=== PATIENT | female | born 1965 | race Caucasian/White ===

== ENCOUNTER 2018-09-28 09:16 | Emergency (ER) | payer OTHER ==
[~2018-09-28] VITALS: Ht 167.6 cm; Wt 86.4 kg
[~2018-09-28 09:16] MED LIST: HYDR-4353 PO; MULT-1179 PO; NO HOME MEDS; ONDA4TAB12 PO; ONDA4TAB6 PO
[2018-09-28 09:20] VITALS: BP 132/80
[2018-09-28] MEDS ORDERED: ondansetron 4mg rapidly disintigrating tab PO ONE (09:25)
[2018-09-28] MEDS ORDERED: LORazepam 1 MG tablet PO PRN (09:25)
[2018-09-28] MEDS ORDERED: ONDA4TAB6 PO (09:29)
[2018-09-28] MEDS ORDERED: proCHLORperazine 10mg tablet PO ONE (10:10)
== END 2018-09-28 10:34 | disposition home or self-care (01) ==
LOC: ER 09:17
DX: F10.229 Alcohol dependence with intoxication, unspecified (principal); R11.0 Nausea; E86.0 Dehydration; I48.91 Unspecified atrial fibrillation; Z86.19 Personal history of other infectious and parasitic diseases; Z90.710 Acquired absence of both cervix and uterus; Z98.890 Other specified postprocedural states; Z79.899 Other long term (current) drug therapy; Z60.2 Problems related to living alone; Z56.0 Unemployment, unspecified; Z59.0 Homelessness; Y90.9 Presence of alcohol in blood, level not specified
CPT/HCPCS: 99284; Q0164

== ENCOUNTER 2018-12-30 00:37 | Emergency (ER) | payer OTHER ==
[~2018-12-30] VITALS: Ht 167.6 cm; Wt 81.8 kg
[2018-12-30] MEDS ORDERED: pantoprazole 40 MG vial IV ONE (00:50)
[2018-12-30] MEDS ORDERED: ondansetron/PF 4mg/2ml inj IV ONE (00:50)
[2018-12-30] MEDS ORDERED: ESOMEPRAZOLE 40 MG VIAL IV ONE (00:50)
[2018-12-30] MEDS ORDERED: normal saline 1000ml 1,000 ML IV ONE ×2 (00:50→02:20)
[2018-12-30] MEDS ORDERED: metoclopramide 5 mg/ml inj IV ONE (02:20)
[2018-12-30] MEDS ORDERED: famotidine 20mg tablet PO ONE (02:20)
[2018-12-30] MEDS ORDERED: thiamine 100mg/ml 2ml inj. IV ONE (02:20)
[2018-12-30] MEDS ORDERED: PANT-47 PO (03:05)
[2018-12-30] MEDS ORDERED: ONDA8TAB6 PO (03:05)
--- NOTE | 2018-12-30 03:44 | NUR ---
PT PO CHALLENGED WITH APPLESAUCE AND CRACKERS, PT PASSED PO CHALLENGE WITHOUT VOMITING.
[2018-12-30 03:56] VITALS: BP 153/89
== END 2018-12-30 04:06 | disposition home or self-care (01) ==
LOC: ER 00:38
DX: K29.20 Alcoholic gastritis without bleeding (principal); I48.91 Unspecified atrial fibrillation; Z86.19 Personal history of other infectious and parasitic diseases; Z87.01 Personal history of pneumonia (recurrent); Z90.710 Acquired absence of both cervix and uterus; Z98.890 Other specified postprocedural states; Z59.0 Homelessness; Z56.0 Unemployment, unspecified; Z79.899 Other long term (current) drug therapy
CPT/HCPCS: 93005; 96361; 96374; 96375; 99283; J2405; J2765; J3411; J7030

== ENCOUNTER 2019-03-03 13:53 | Emergency (ER) | payer MEDICAID, OTHER ==
[~2019-03-03] VITALS: Ht 167.6 cm; Wt 86.4 kg
[~2019-03-03 13:53] MED LIST changes: +ONDA8TAB6 PO; +PANT-47 PO
[2019-03-03 15:01] LABS: BASOPHILS % (AUTO) 0.5 % (0-1); EOSINOPHILS % (AUTO) 0.4 % (0-6); HEMATOCRIT 50.9 % (35.0-45.0); HEMOGLOBIN 17.4 g/dl (12.0-16.0); LYMPHOCYTES # (AUTO) 2.9 X10'3 (1.1-4.8); LYMPHOCYTES % (AUTO) 44.4 % (21-51); MEAN CORPUSCULAR HEMOGLOBIN 31.8 PG (27.0-31.0); MEAN CORPUSCULAR HGB CONC 34.3 g/dL (33.0-36.5); MEAN CORPUSCULAR VOLUME 92.9 FL (78-98); MEAN PLATELET VOLUME 8.1 FL (7.4-10.4); MONOCYTES # (AUTO) 0.3 X10'3 (0-0.9); MONOCYTES % (AUTO) 5.2 % (2-12); NEUTROPHILS # (AUTO) 3.2 X10'3 (1.8-7.7); NEUTROPHILS % (AUTO) 49.5 % (42-75); PLATELET COUNT 201 X10'3 (140-440); RED BLOOD COUNT 5.48 X10'6 (4.20-5.60); RED CELL DISTRIBUTION WIDTH 13.1 % (11.5-14.5); WHITE BLOOD COUNT 6.6 X10'3 (4.5-11.0)
--- NOTE | 2019-03-03 15:20 | NUR ---
PT REQUESTED TO CONTACT FAMILY FRIEND, USHA. HIS PHONE NUMBER IS [phone].
[2019-03-03 15:22] LABS: ALANINE AMINOTRANSFERASE 57 U/L (12-78); ALBUMIN 3.4 G/DL (3.4-5.0); ALBUMIN/GLOBULIN RATIO 0.9 (1.1-1.5); ALKALINE PHOSPHATASE 109 IU/L (46-116); ANION GAP 7 (8-16); ASPARTATE AMINO TRANSFERASE 76 U/L (10-37); BILIRUBIN,TOTAL 0.2 MG/DL (0.1-1.0); BLOOD UREA NITROGEN 9 MG/DL (7-18); BUN/CREATININE RATIO 14.8 (6.6-38.0); CALCIUM 8.2 MG/DL (8.5-10.1); CHLORIDE 106 MMOL/L (99-107); CREATININE 0.61 MG/DL (0.40-0.90); GLUCOSE 107 MG/DL (70-104); POTASSIUM 3.8 MMOL/L (3.5-5.1); SODIUM 144 MMOL/L (135-145); TOTAL CARBON DIOXIDE 31.5 MMOL/L (24-32); TOTAL PROTEIN 7.3 G/DL (6.4-8.2); eGFR > 90 ML/MIN
[2019-03-03 15:35] LABS: ETHANOL 0.313 GM/DL (0.0-0.010)
[2019-03-03 17:04] LABS: CLARITY,URINE CLEAR (Clear); COLOR,URINE YELLOW (Yellow); GLUCOSE, URINE NEGATIVE (Neg); KETONES,URINE NEGATIVE (Neg); LEUKOCYTE ESTERASE ,URINE NEGATIVE (Neg); NITRITES, URINE NEGATIVE (Neg); OCCULT BLOOD,URINE NEGATIVE (Neg); PH,URINE 7.5 (4.8-8.0); PROTEIN,URINE NEGATIVE (Neg)
[2019-03-03 17:05] LABS: UA COLLECTION TYPE CLN CATCH MIDSTREAM
[2019-03-03 17:20] LABS: URINE AMPHETAMINE SCREEN NEGATIVE (Neg); URINE BARBITUATE SCREEN NEGATIVE (Neg); URINE BENZODIAZEPINES SCREEN NEGATIVE (Neg); URINE CANNABINOID SCREEN NEGATIVE (Neg); URINE COCAINE SCREEN NEGATIVE (Neg); URINE METHADONE SCREEN NEGATIVE (Neg); URINE OPIATE SCREEN NEGATIVE (Neg); URINE PHENCYCLIDINE SCREEN NEGATIVE (Neg)
[2019-03-03] MEDS ORDERED: nicotine 21mg patch - 24 hr TD ONE (17:30)
--- NOTE | 2019-03-03 17:30 | NUR ---
PT MEDICAL CLEARED. PACKET FAXED TO [facility] OFF[facility].
[2019-03-03] MEDS ORDERED: ondansetron 4mg rapidly disintigrating tab PO ONE (18:35)
[2019-03-04] MEDS ORDERED: chlordiazePOXIDE 25mg capsule PO ONE (02:25)
[2019-03-04] MEDS ORDERED: folic acid 1mg tablet PO ONE (02:25)
[2019-03-04] MEDS ORDERED: thiamine 100mg tablet PO ONE (02:25)
--- NOTE | 2019-03-04 02:36 | NUR ---
Discussed pt's ETOH withdrawal symptoms with AVI Phan. New order to begin pt on Mild Alcohol Withdrawal protocol: Ativan 2mg PO Q2h for agitation x3 days, Haldol 5mg Po or IM Q6h for agitation x3 days. If Ativan alone not effective, give Haldol IM only PO rout not available or ineffective. form faxed to Pharmacy.
[2019-03-04] MEDS ORDERED: LORazepam 1 MG tablet PO PRN ×2 (02:45)
[2019-03-04] MEDS ORDERED: LORazepam 2 mg/ml vial IV PRN (02:45)
[2019-03-04] MEDS ORDERED: haloperidol 5mg tablet PO PRN ×2 (02:45)
[2019-03-04] MEDS ORDERED: haloperidol lactate 5mg/ml inj IM PRN (02:45)
[2019-03-04] MEDS ORDERED: thiamine 100mg/ml 2ml inj. IV ONE (02:50)
--- NOTE | 2019-03-04 03:03 | NUR ---
Pt willingly accepted all po meds. She is refusing IV thiamine @ this time saying, "If I don't start feeling better I'll let you put one in me, but it will have to be in my neck. First I want to see if these meds will stay down and work." Will continue to monitor pt and keep EDMD appraised.
--- NOTE | 2019-03-04 03:11 | NUR ---
Pt is denying S/I @ this time saying, "I drank 99 proof for 4 or 5 days and said I wanted to kill myself. I was just really stupid and lonely. And my stress level was high as my [facility] client of 5 years just basically 'fired' me. It was the way he did it that was so upsetting. I introduced him to a friend of mine and he took off with her." Pt denies H/I or audio/visual hallucinations @ this time. Pt exhibits s/s of etoh withdrawal including irritability, restlessness, anxiety, light/sound sensitivity, fine and coarse hand tremors. She attempts to be cooperative, but mood is very labile currently.
--- NOTE | 2019-03-04 03:17 | NUR ---
seizure pads placed
[2019-03-04 05:30] VITALS: BP 148/101
--- NOTE | 2019-03-04 07:20 | NUR ---
patient appears to be asleep.
--- NOTE | 2019-03-04 07:40 | NUR ---
Patients medications given, patient is steady and has minimal shaking of the hands. Patient states "Im feeling better." Educated patient to request Ativan if she is feeling anxious and startes to have increased shaking. Patient acknowledges education and states "I'm not drinking again".
[2019-03-04] MEDS ORDERED: nicotine 21mg patch - 24 hr TD SCH (08:00)
--- NOTE | 2019-03-04 08:55 | NUR ---
[facility] in to eval patient.
== END 2019-03-04 11:01 | disposition home or self-care (01) ==
LOC: ER 13:54
DX: R45.851 Suicidal ideations (principal); F10.129 Alcohol abuse with intoxication, unspecified; I48.91 Unspecified atrial fibrillation; Z86.19 Personal history of other infectious and parasitic diseases; Z90.710 Acquired absence of both cervix and uterus; Z98.890 Other specified postprocedural states; Z60.2 Problems related to living alone; Z59.0 Homelessness; Z56.0 Unemployment, unspecified; Y90.0 Blood alcohol level of less than 20 mg/100 ml
CPT/HCPCS: 36415; 80053; 80305; 80320; 81003; 84443; 85025; 99284; J2405

== ENCOUNTER 2019-09-17 01:55 | Emergency (ER) | payer MEDICAID ==
[~2019-09-17] VITALS: Ht 167.6 cm; Wt 70.5 kg
[~2019-09-17 01:55] MED LIST changes: -HYDR-4353 PO; -MULT-1179 PO; -ONDA4TAB12 PO; -ONDA4TAB6 PO; -ONDA8TAB6 PO; -PANT-47 PO
[2019-09-17] MEDS ORDERED: diphenhydrAMINE 50 mg/ml inj IV ONE (02:00)
[2019-09-17] MEDS ORDERED: metoclopramide 5 mg/ml inj IV ONE (02:00)
[2019-09-17] MEDS ORDERED: normal saline 1000ML IV soln IVB ONE ×3 (02:00→04:35)
[2019-09-17] MEDS ORDERED: LORazepam 2 mg/ml vial IV ONE (02:10)
[2019-09-17] MEDS ORDERED: glycopyrrolate 0.2mg/ml inj IV ONE (02:10)
[2019-09-17 02:42] LABS: BASOPHILS % (AUTO) 0.3 % (0-1); EOSINOPHILS # (AUTO) 0.1 X10'3 (0-0.9); EOSINOPHILS % (AUTO) 0.5 % (0-6); HEMATOCRIT 51.5 % (35.0-45.0); HEMOGLOBIN 17.5 g/dl (12.0-16.0); LYMPHOCYTES # (AUTO) 3.3 X10'3 (1.1-4.8); LYMPHOCYTES % (AUTO) 32.6 % (21-51); MEAN CORPUSCULAR HEMOGLOBIN 30.1 PG (27.0-31.0); MEAN CORPUSCULAR HGB CONC 33.9 g/dL (33.0-36.5); MEAN CORPUSCULAR VOLUME 88.6 FL (78-98); MEAN PLATELET VOLUME 9.1 FL (7.4-10.4); MONOCYTES # (AUTO) 0.6 X10'3 (0-0.9); MONOCYTES % (AUTO) 6.1 % (2-12); NEUTROPHILS # (AUTO) 6.2 X10'3 (1.8-7.7); NEUTROPHILS % (AUTO) 60.5 % (42-75); PLATELET COUNT 244 X10'3 (140-440); RED BLOOD COUNT 5.82 X10'6 (4.20-5.60); RED CELL DISTRIBUTION WIDTH 15.7 % (11.5-14.5); WHITE BLOOD COUNT 10.3 X10'3 (4.5-11.0)
[2019-09-17 02:52] LABS: ALANINE AMINOTRANSFERASE 30 U/L (12-78); ALKALINE PHOSPHATASE 107 IU/L (46-116); ANION GAP 9 (8-16); ASPARTATE AMINO TRANSFERASE 21 U/L (10-37); BILIRUBIN,TOTAL 0.5 MG/DL (0.1-1.0); BLOOD UREA NITROGEN 14 MG/DL (7-18); BUN/CREATININE RATIO 14.3 (6.6-38.0); CALCIUM 9.6 MG/DL (8.5-10.1); CHLORIDE 97 MMOL/L (99-107); CREATININE 0.98 MG/DL (0.40-0.90); GLUCOSE 110 MG/DL (70-104); LIPASE 149 U/L (73-393); POTASSIUM 3.7 MMOL/L (3.5-5.1); SODIUM 133 MMOL/L (135-145); TOTAL CARBON DIOXIDE 27.4 MMOL/L (24-32); TOTAL PROTEIN 7.9 G/DL (6.4-8.2); eGFR 59 ML/MIN
[2019-09-17 03:13] LABS: CLARITY,URINE SLIGHTLY CLOUDY (Clear); COLOR,URINE YELLOW (Yellow); GLUCOSE, URINE NEGATIVE (Neg); KETONES,URINE NEGATIVE (Neg); LEUKOCYTE ESTERASE ,URINE NEGATIVE (Neg); NITRITES, URINE NEGATIVE (Neg); OCCULT BLOOD,URINE TRACE-INTACT (Neg); PROTEIN,URINE TRACE mg/dl (Neg); UROBILINOGEN,URINE 0.2 E.U/dL (0.2-1.0)
[2019-09-17 03:21] LABS: UA COLLECTION TYPE CLN CATCH MIDSTREAM
[2019-09-17 03:23] LABS: MUCUS STRANDS MANY /LPF (Neg); SQUAMOUS EPITHELIAL CELL,UR MANY /LPF (FEW)
[2019-09-17 03:25] LABS: BACTERIA,URINE FEW /HPF (Neg); RBC,URINE 0-2 /HPF (0-2); WBC,URINE 0-4 /HPF (0-4)
[2019-09-17] MEDS ORDERED: ONDA4TAB12 PO (04:47)
[2019-09-17 05:46] VITALS: BP 173/109
[2019-09-18] MEDS ORDERED: PROC25SU31 RC (01:18)
== END 2019-09-17 05:47 | disposition home or self-care (01) ==
LOC: ER 01:55
DX: R11.2 Nausea with vomiting, unspecified (principal); R10.84 Generalized abdominal pain; R42 Dizziness and giddiness; I48.91 Unspecified atrial fibrillation; F12.90 Cannabis use, unspecified, uncomplicated; Z86.19 Personal history of other infectious and parasitic diseases; Z90.710 Acquired absence of both cervix and uterus; Z98.890 Other specified postprocedural states; Z72.89 Other problems related to lifestyle; Z60.2 Problems related to living alone; Z59.0 Homelessness; Z56.0 Unemployment, unspecified; Z79.899 Other long term (current) drug therapy
CPT/HCPCS: 36415; 80053; 81001; 83690; 85025; 96361; 96374; 96375; 99284; J1200; J2060; J2765; J7030; J3490

== ENCOUNTER 2019-09-17 21:59 | Emergency (ER) | payer MEDICAID ==
[~2019-09-17] VITALS: Ht 167.6 cm; Wt 68.2 kg
[~2019-09-17 21:59] MED LIST changes: +ONDA4TAB12 PO
[2019-09-17 22:03] VITALS: BP 179/120
--- NOTE | 2019-09-17 22:16 | NUR ---
PATIENT WAS VISUALIZED STICKING HER HAND DOWN HER THROAT TO INITIATE VOMITING
[2019-09-17] MEDS ORDERED: magnesium 2GM in 50ml NS 50 ML IV ONE (22:40)
[2019-09-17] MEDS ORDERED: LORazepam 2 mg/ml vial IV ONE (22:40)
[2019-09-17] MEDS ORDERED: normal saline 1000ML IV soln IVB ONE ×2 (22:40)
[2019-09-17] MEDS ORDERED: diphenhydrAMINE 50 mg/ml inj IV ONE (22:40)
[2019-09-17] MEDS ORDERED: haloperidol lactate 5mg/ml inj IM ONE (22:40)
[2019-09-17 23:00] LABS: EOSINOPHILS # (AUTO) 0.1 X10'3 (0-0.9); HEMOGLOBIN 17.4 g/dl (12.0-16.0); MONOCYTES # (AUTO) 0.6 X10'3 (0-0.9)
[2019-09-17 23:01] LABS: BASOPHILS % (AUTO) 0.4 % (0-1); EOSINOPHILS % (AUTO) 0.5 % (0-6); HEMATOCRIT 50.9 % (35.0-45.0); LYMPHOCYTES # (AUTO) 3.1 X10'3 (1.1-4.8); MEAN CORPUSCULAR HEMOGLOBIN 30.6 PG (27.0-31.0); MEAN CORPUSCULAR HGB CONC 34.1 g/dL (33.0-36.5); MEAN CORPUSCULAR VOLUME 89.5 FL (78-98); MEAN PLATELET VOLUME 9.1 FL (7.4-10.4); MONOCYTES % (AUTO) 5.1 % (2-12); NEUTROPHILS # (AUTO) 8.1 X10'3 (1.8-7.7); PLATELET COUNT 241 X10'3 (140-440); RED BLOOD COUNT 5.68 X10'6 (4.20-5.60); RED CELL DISTRIBUTION WIDTH 15.8 % (11.5-14.5); WHITE BLOOD COUNT 11.9 X10'3 (4.5-11.0)
[2019-09-17 23:12] LABS: H PYLORI ANTIBODY NEGATIVE (Neg)
[2019-09-17 23:13] LABS: ALANINE AMINOTRANSFERASE 28 U/L (12-78); ALBUMIN 3.8 G/DL (3.4-5.0); ALKALINE PHOSPHATASE 104 IU/L (46-116); ANION GAP 9 (8-16); ASPARTATE AMINO TRANSFERASE 22 U/L (10-37); BILIRUBIN,TOTAL 0.6 MG/DL (0.1-1.0); BLOOD UREA NITROGEN 9 MG/DL (7-18); BUN/CREATININE RATIO 11.1 (6.6-38.0); CALCIUM 9.6 MG/DL (8.5-10.1); CHLORIDE 100 MMOL/L (99-107); CREATININE 0.81 MG/DL (0.40-0.90); GLUCOSE 120 MG/DL (70-104); POTASSIUM 3.7 MMOL/L (3.5-5.1); SODIUM 135 MMOL/L (135-145); TOTAL CARBON DIOXIDE 26.5 MMOL/L (24-32); TOTAL PROTEIN 7.7 G/DL (6.4-8.2); eGFR 73 ML/MIN
[2019-09-17 23:22] LABS: LIPASE 145 U/L (73-393)
[2019-09-18] MEDS ORDERED: normal saline 1000ML IV soln IVB ONE (00:20)
[2019-09-18] MEDS ORDERED: ondansetron/PF 4mg/2ml inj IV ONE (00:40)
[2019-09-18] MEDS ORDERED: PROC25SU31 RC (01:18)
[2019-09-19] MEDS ORDERED: SUCR1TAB34 PO (04:27)
[2019-09-19] MEDS ORDERED: OMEP20CA15 PO (04:27)
[2019-09-19] MEDS ORDERED: FAMO20TA44 PO (04:27)
[2019-09-19] MEDS ORDERED: ONDA4TAB6 PO (04:27)
== END 2019-09-18 01:45 | disposition home or self-care (01) ==
LOC: ER 21:59
DX: R11.2 Nausea with vomiting, unspecified (principal); R10.84 Generalized abdominal pain; I48.91 Unspecified atrial fibrillation; F12.90 Cannabis use, unspecified, uncomplicated; Z86.19 Personal history of other infectious and parasitic diseases; Z90.710 Acquired absence of both cervix and uterus; Z98.890 Other specified postprocedural states; Z60.2 Problems related to living alone; Z59.0 Homelessness; Z56.0 Unemployment, unspecified; Z79.899 Other long term (current) drug therapy
CPT/HCPCS: 36415; 80053; 83605; 83690; 84439; 84443; 85025; 86677; 96361; 96365; 96366; 96372; 96375; 99284; J1200; J1630; J2060; J2405; J3475; J7030

== ENCOUNTER 2019-09-19 01:15 | Emergency (ER) | payer MEDICAID ==
[~2019-09-19] VITALS: Ht 167.6 cm; Wt 68.0 kg
[~2019-09-19 01:15] MED LIST changes: +PROC25SU31 RC
[2019-09-19] MEDS ORDERED: pantoprazole 40 MG vial IV ONE (01:35)
[2019-09-19] MEDS ORDERED: ondansetron/PF 4mg/2ml inj IV ONE ×2 (01:35→04:45)
[2019-09-19] MEDS ORDERED: normal saline 1000ML IV soln IVB ONE (01:35)
[2019-09-19] MEDS ORDERED: famotidine/PF 10 mg/ml inj IV ONE (01:35)
[2019-09-19 02:40] LABS: ALANINE AMINOTRANSFERASE 30 U/L (12-78); ALBUMIN 4.1 G/DL (3.4-5.0); ALBUMIN/GLOBULIN RATIO 1.1 (1.1-1.5); ALKALINE PHOSPHATASE 104 IU/L (46-116); ANION GAP 8 (8-16); ASPARTATE AMINO TRANSFERASE 28 U/L (10-37); BILIRUBIN,TOTAL 0.7 MG/DL (0.1-1.0); BLOOD UREA NITROGEN 10 MG/DL (7-18); BUN/CREATININE RATIO 11.5 (6.6-38.0); CALCIUM 9.6 MG/DL (8.5-10.1); CHLORIDE 100 MMOL/L (99-107); CREATININE 0.87 MG/DL (0.40-0.90); GLUCOSE 138 MG/DL (70-104); LIPASE 122 U/L (73-393); POTASSIUM 3.5 MMOL/L (3.5-5.1); SODIUM 136 MMOL/L (135-145); TOTAL CARBON DIOXIDE 27.8 MMOL/L (24-32); eGFR 67 ML/MIN
[2019-09-19] MEDS ORDERED: haloperidol lactate 5mg/ml inj IM ONE (03:05)
[2019-09-19 03:22] LABS: BASOPHILS % (AUTO) 0.3 % (0-1); EOSINOPHILS % (AUTO) 0.1 % (0-6); HEMATOCRIT 48.1 % (35.0-45.0); HEMOGLOBIN 16.3 g/dl (12.0-16.0); LYMPHOCYTES # (AUTO) 2.1 X10'3 (1.1-4.8); LYMPHOCYTES % (AUTO) 17.6 % (21-51); MEAN CORPUSCULAR HEMOGLOBIN 29.9 PG (27.0-31.0); MEAN CORPUSCULAR HGB CONC 33.8 g/dL (33.0-36.5); MEAN CORPUSCULAR VOLUME 88.3 FL (78-98); MEAN PLATELET VOLUME 9.3 FL (7.4-10.4); MONOCYTES # (AUTO) 0.5 X10'3 (0-0.9); MONOCYTES % (AUTO) 4.4 % (2-12); NEUTROPHILS # (AUTO) 9.4 X10'3 (1.8-7.7); NEUTROPHILS % (AUTO) 77.6 % (42-75); PLATELET COUNT 265 X10'3 (140-440); RED BLOOD COUNT 5.45 X10'6 (4.20-5.60); RED CELL DISTRIBUTION WIDTH 15.5 % (11.5-14.5); WHITE BLOOD COUNT 12.1 X10'3 (4.5-11.0)
[2019-09-19] MEDS ORDERED: LIDOcaine Viscous 15ml cup MM PRN (03:30)
[2019-09-19] MEDS ORDERED: mag hydrox/Alum hydrox/simeth 30ml oral suspension PO ONE (03:30)
[2019-09-19] MEDS ORDERED: sucralfate 1gm/10ml UD suspension PO SCH (03:30)
[2019-09-19] MEDS ORDERED: SUCR1TAB34 PO (04:27)
[2019-09-19] MEDS ORDERED: ONDA4TAB6 PO (04:27)
[2019-09-19] MEDS ORDERED: FAMO20TA44 PO (04:27)
[2019-09-19] MEDS ORDERED: OMEP20CA15 PO (04:27)
[2019-09-19 04:58] VITALS: BP 179/100
== END 2019-09-19 05:30 | disposition home or self-care (01) ==
LOC: ER 01:16
DX: K29.70 Gastritis, unspecified, without bleeding (principal); I48.91 Unspecified atrial fibrillation; F12.90 Cannabis use, unspecified, uncomplicated; Z86.19 Personal history of other infectious and parasitic diseases; Z90.710 Acquired absence of both cervix and uterus; Z98.890 Other specified postprocedural states; Z59.0 Homelessness; Z56.0 Unemployment, unspecified; Z60.2 Problems related to living alone; Z72.89 Other problems related to lifestyle; Z79.899 Other long term (current) drug therapy
CPT/HCPCS: 36415; 80053; 83605; 83690; 85025; 96361; 96372; 96374; 96375; 96376; 99284; C9113; J1630; J2405; J3490; J7030

== ENCOUNTER 2020-02-16 18:20 | Inpatient (IN) | payer MEDICAID ==
[~2020-02-16] VITALS: Ht 167.6 cm; Wt 62.7 kg
[~2020-02-16 18:20] MED LIST changes: +FAMO20TA44 PO; +OMEP20CA15 PO; +ONDA4TAB6 PO; -PROC25SU31 RC; +SUCR1TAB34 PO
--- NOTE | 2020-02-16 19:13 | NUR ---
[facility] SPEAKING WITH PT
[2020-02-16 19:22] LABS: CLARITY,URINE CLEAR (Clear); COLOR,URINE YELLOW (Yellow); GLUCOSE, URINE NEGATIVE (Neg); KETONES,URINE NEGATIVE (Neg); LEUKOCYTE ESTERASE ,URINE NEGATIVE (Neg); NITRITES, URINE NEGATIVE (Neg); OCCULT BLOOD,URINE TRACE-INTACT (Neg); PROTEIN,URINE TRACE mg/dl (Neg)
[2020-02-16 19:27] LABS: BASOPHILS % (AUTO) 0.3 % (0-1); EOSINOPHILS % (AUTO) 0 % (0-6); HEMATOCRIT 43.1 % (35.0-45.0); HEMOGLOBIN 14.7 g/dl (12.0-16.0); LYMPHOCYTES # (AUTO) 2.9 X10'3 (1.1-4.8); LYMPHOCYTES % (AUTO) 18.7 % (21-51); MEAN CORPUSCULAR HEMOGLOBIN 32.8 PG (27.0-31.0); MEAN CORPUSCULAR HGB CONC 34.1 g/dL (33.0-36.5); MEAN CORPUSCULAR VOLUME 96.1 FL (78-98); MEAN PLATELET VOLUME 8.4 FL (7.4-10.4); MONOCYTES # (AUTO) 1.1 X10'3 (0-0.9); NEUTROPHILS # (AUTO) 11.3 X10'3 (1.8-7.7); PLATELET COUNT 290 X10'3 (140-440); RED BLOOD COUNT 4.49 X10'6 (4.20-5.60); WHITE BLOOD COUNT 15.3 X10'3 (4.5-11.0)
[2020-02-16 19:28] LABS: UA COLLECTION TYPE CLN CATCH MIDSTREAM
[2020-02-16 19:29] LABS: BACTERIA,URINE FEW /HPF (Neg); MUCUS STRANDS FEW /LPF (Neg); RBC,URINE 0-2 /HPF (0-2); SQUAMOUS EPITHELIAL CELL,UR FEW /LPF (FEW); WBC,URINE 0-4 /HPF (0-4)
[2020-02-16 19:42] LABS: ALANINE AMINOTRANSFERASE 23 U/L (12-78); ALBUMIN 3.4 G/DL (3.4-5.0); ALBUMIN/GLOBULIN RATIO 0.8 (1.1-1.5); ALKALINE PHOSPHATASE 115 IU/L (46-116); ANION GAP 14 (8-16); ASPARTATE AMINO TRANSFERASE 16 U/L (10-37); BILIRUBIN,TOTAL 0.5 MG/DL (0.1-1.0); BLOOD UREA NITROGEN 7 MG/DL (7-18); BUN/CREATININE RATIO 9.7 (6.6-38.0); CALCIUM 8.3 MG/DL (8.5-10.1); CHLORIDE 100 MMOL/L (99-107); CREATININE 0.72 MG/DL (0.40-0.90); GLUCOSE 130 MG/DL (70-104); POTASSIUM 3.2 MMOL/L (3.5-5.1); SODIUM 137 MMOL/L (135-145); TOTAL CARBON DIOXIDE 23.3 MMOL/L (24-32); TOTAL PROTEIN 7.8 G/DL (6.4-8.2); eGFR 84 ML/MIN
--- NOTE | 2020-02-16 19:52 | NUR ---
UPDATED EXTENSION PROFESSOR ABOUT PT NOT BEING PICKED UP BY AN MD YET.
--- NOTE | 2020-02-16 20:15 | NUR ---
UPDATED WILIAM AL REGARDING PT'S CONDITION AND LAB RESULTS. RN UPDATED THAT PT IS SEPTIC; WILL ORDER MORPHINE 4MG, 2L BOLUS AND BLOOD CULTURES TO BE DRAWN.
[2020-02-16] MEDS ORDERED: normal saline 1000ml 1,000 ML IV STA (20:17)
--- NOTE | 2020-02-16 20:19 | NUR ---
VERBAL ORDER FOR MORPHINE 4MG, 2L BOLUS AND BLOOD CULTURES TO BE DRAWN.
[2020-02-16] MEDS ORDERED: normal saline 1000ml 1,000 ML IV ONE (20:20)
[2020-02-16] MEDS ORDERED: morphine 4 MG/ML inj SYRINge IV ONE (20:20)
--- NOTE | 2020-02-16 20:53 | NUR ---
SPOKE WITH LAB- THEY INFORMED RN THAT THEY DID NOT HAVE ANY BLOOD CULTURES. SPOKE WITH PROMPT CARE RNSANTINO REED- SHE INFORMED RN THAT FIRST CULTURES HAVE BEEN DRAWN.
[2020-02-16] MEDS ORDERED: temazepam 15mg capsule PO PRN (21:00)
[2020-02-16] MEDS ORDERED: vancomycin/NS 1 GM ADD-VANTAGE 250 ML IV ONE (21:15)
[2020-02-16] MEDS ORDERED: potassium Cl 20 mEq SR tablet PO ONE (21:25)
[2020-02-16] MEDS ORDERED: CITA20TA19 PO (22:07)
--- NOTE | 2020-02-16 22:12 | NUR ---
UPDATED WILIAM AL ABOUT PT'S LOWER O2 READINGS. PT IS NOT STATING SHE IS HAVING ANY SOB AT THIS TIME. NO VERBAL ORDER FOR O2. WILL CONTINUE TO MONITOR.
--- NOTE | 2020-02-16 22:20 | NUR ---
PT ASLEEP AND O2 DROPPED TO 83-84%- WILIAM PA AWARE AND VERBAL ORDER FOR 2L O2 VIA NC. 2025: O2 NOW AT 90%- WILL CONTINUE TO MONITOR.
[2020-02-16] MEDS: normal saline 1000ml 1,000 ML IV SCH (22:24)
[2020-02-16] MEDS ORDERED: magnesium 2GM in 50ml NS 50 ML IV PRN (22:25)
[2020-02-16] MEDS ORDERED: ondansetron/PF 4mg/2ml inj IV PRN (22:25)
[2020-02-16] MEDS ORDERED: morphine 2 MG/ML inj. syringe IV PRN (22:25)
[2020-02-16] MEDS ORDERED: magnesium Cl slow-release 64mg tablet PO PRN (22:25)
[2020-02-16] MEDS ORDERED: acetaminophen 325mg tablet PO PRN ×2 (22:25)
[2020-02-16] MEDS ORDERED: potassium CL 10mEq/100ml bag 100 ML IV PRN ×2 (22:25)
[2020-02-16] MEDS ORDERED: magnesium 4gm in 100ml NS 100 ML IV PRN (22:25)
[2020-02-16] MEDS ORDERED: HYDROcodone/acetaminophen 5mg/325mg tablet PO PRN (22:25)
[2020-02-16] MEDS ORDERED: potassium Cl 20 mEq SR tablet PO PRN (22:25)
[2020-02-16] MEDS ORDERED: mag hydrox/Alum hydrox/simeth 30ml oral suspension PO PRN (22:25)
[2020-02-16] MEDS ORDERED: albuterol 2.5 MG/3 ML nebule NEB PRN (22:30)
--- NOTE | 2020-02-16 23:15 | NUR ---
PT O2 STILL LOW (90-91%) ON 2L; INCREASED TO 3L NC- O2 INCREASED TO 96%. WILL CONTINUE TO MONITOR.
[2020-02-16] MEDS ORDERED: LORazepam 1 MG tablet PO PRN (23:50)
[2020-02-16] MEDS ORDERED: LORazepam 2 mg/ml vial IV PRN (23:50)
--- NOTE | 2020-02-17 00:03 | NUR ---
SPOKE WITH SHANDAU REGARDING SEIZURE PRECAUTION ORDERS. PT INFORMED MD THAT SHE INCREASED HER ALCOHOL CONSUMPTION RECENTLY (SHE DID NOT TELL THIS TO RN); SEIZURE PRECAUTIONS ORDERED AND WITHDRAWAL MONITORING.
[2020-02-17] MEDS: morphine 2 MG/ML inj. syringe IV PRN ×4 (01:01→19:14)
--- NOTE | 2020-02-17 02:10 | NUR ---
PT TRANSFERRED TO HOSPITAL BED FOR COMFORT. GIVEN 2 APPLE JUICE CUPS AND WARM BLANKET UPON REQUEST. PT STATES NO OTHER NEEDS AT THIS TIME.
[2020-02-17] MEDS: HYDROcodone/acetaminophen 10/325mg tab PO PRN ×2 (03:05→10:09)
[2020-02-17 07:28] LABS: ALBUMIN 3.1 G/DL (3.4-5.0); ANION GAP 7 (8-16); BLOOD UREA NITROGEN 6 MG/DL (7-18); BUN/CREATININE RATIO 9.8 (6.6-38.0); CALCIUM 7.7 MG/DL (8.5-10.1); CHLORIDE 101 MMOL/L (99-107); CREATININE 0.61 MG/DL (0.40-0.90); GLUCOSE 97 MG/DL (70-104); MAGNESIUM 1.6 MG/DL (1.5-2.4); POTASSIUM 4.1 MMOL/L (3.5-5.1); SODIUM 135 MMOL/L (135-145); TOTAL CARBON DIOXIDE 26.6 MMOL/L (24-32); eGFR > 90 ML/MIN
[2020-02-17 07:32] LABS: BASOPHILS % (AUTO) 0.3 % (0-1); EOSINOPHILS % (AUTO) 0.1 % (0-6); HEMATOCRIT 42.1 % (35.0-45.0); LYMPHOCYTES # (AUTO) 2.8 X10'3 (1.1-4.8); LYMPHOCYTES % (AUTO) 17.1 % (21-51); MEAN CORPUSCULAR HEMOGLOBIN 32.1 PG (27.0-31.0); MEAN CORPUSCULAR HGB CONC 33.3 g/dL (33.0-36.5); MEAN CORPUSCULAR VOLUME 96.5 FL (78-98); MEAN PLATELET VOLUME 8.4 FL (7.4-10.4); MONOCYTES # (AUTO) 1.2 X10'3 (0-0.9); MONOCYTES % (AUTO) 7.2 % (2-12); NEUTROPHILS # (AUTO) 12.5 X10'3 (1.8-7.7); NEUTROPHILS % (AUTO) 75.3 % (42-75); PLATELET COUNT 274 X10'3 (140-440); RED BLOOD COUNT 4.37 X10'6 (4.20-5.60); RED CELL DISTRIBUTION WIDTH 13.2 % (11.5-14.5); WHITE BLOOD COUNT 16.6 X10'3 (4.5-11.0)
[2020-02-17] MEDS: K and/or MAG REPLACEMENT MC SCH ×2 (08:00→19:17)
[2020-02-17] MEDS: normal saline 1000ml 1,000 ML IV SCH ×2 (08:24→18:24)
[2020-02-17] MEDS: docusate sod 100mg capsule PO SCH ×2 (10:04→19:10)
[2020-02-17] MEDS: citalopram 20mg tablet PO SCH (10:04)
[2020-02-17] MEDS: nicotine 14mg patch - 24hr TD SCH (10:05)
[2020-02-17] MEDS: heparin, porcine 5000 units/ml vial SQ SCH ×2 (10:11→19:09)
[2020-02-17] MEDS: doxycycline inj 100 MG in normal saline 100ml IV soln 100 ML IV SCH ×2 (10:17→21:02)
[2020-02-17 11:00] VITALS: BP 132/80
[2020-02-17] MEDS ORDERED: dextrose 50%-water 50ml dispensing syringe IV PRN (15:35)
[2020-02-17] MEDS ORDERED: haloperidol 5mg tablet PO PRN (15:35)
[2020-02-17] MEDS ORDERED: LORazepam 1 MG tablet PO PRN (15:35)
[2020-02-17] MEDS ORDERED: haloperidol lactate 5mg/ml inj IM PRN (15:35)
[2020-02-17] MEDS: piperacillin/tazo 3.375gm/50ml 50 ML IV SCH (16:43)
[2020-02-17] MEDS: LORazepam 2 mg/ml vial IV PRN ×2 (16:52→22:32)
--- NOTE | 2020-02-17 18:14 | NUR ---
Problems reprioritized. Patient report given, questions answered & plan of care reviewed with Maria Guadalupe CORREA.
--- NOTE | 2020-02-17 18:38 | NUR ---
Patient in room ROBERT 346. I have received report from Dana CORREA and had the opportunity to ask questions and assume patient care.
[2020-02-17] MEDS: vancomycin/NS 1 GM ADD-VANTAGE 250 ML IV SCH (19:03)
[2020-02-17] MEDS: lactobacillus rhamnosus 10,000 MMU CELLS/CAPSULE PO SCH (19:10)
[2020-02-17 20:16] VITALS: BP 120/77
[2020-02-18] VITALS: BP 122/66
[2020-02-18] MEDS: piperacillin/tazo 3.375gm/50ml 50 ML IV SCH ×4 (00:39→21:52)
[2020-02-18] MEDS: morphine 2 MG/ML inj. syringe IV PRN ×5 (01:07→21:52)
[2020-02-18] MEDS: normal saline 1000ml 1,000 ML IV SCH ×3 (03:24→21:49)
[2020-02-18] MEDS: vancomycin/NS 1 GM ADD-VANTAGE 250 ML IV SCH ×2 (04:35→17:33)
[2020-02-18] MEDS: LORazepam 2 mg/ml vial IV PRN ×3 (04:36→19:32)
[2020-02-18 05:17] LABS: BASOPHILS % (AUTO) 0.2 % (0-1); EOSINOPHILS % (AUTO) 0.3 % (0-6); HEMATOCRIT 36.7 % (35.0-45.0); HEMOGLOBIN 12.3 g/dl (12.0-16.0); LYMPHOCYTES # (AUTO) 2.5 X10'3 (1.1-4.8); LYMPHOCYTES % (AUTO) 15.1 % (21-51); MEAN CORPUSCULAR HEMOGLOBIN 32.2 PG (27.0-31.0); MEAN CORPUSCULAR HGB CONC 33.6 g/dL (33.0-36.5); MEAN PLATELET VOLUME 8.7 FL (7.4-10.4); MONOCYTES # (AUTO) 0.8 X10'3 (0-0.9); MONOCYTES % (AUTO) 4.7 % (2-12); NEUTROPHILS % (AUTO) 79.7 % (42-75); PLATELET COUNT 281 X10'3 (140-440); RED BLOOD COUNT 3.83 X10'6 (4.20-5.60); RED CELL DISTRIBUTION WIDTH 12.7 % (11.5-14.5); WHITE BLOOD COUNT 16.3 X10'3 (4.5-11.0)
[2020-02-18 05:31] LABS: ALBUMIN 2.2 G/DL (3.4-5.0); ANION GAP 6 (8-16); CALCIUM 7.7 MG/DL (8.5-10.1); CHLORIDE 99 MMOL/L (99-107); CREATININE 0.55 MG/DL (0.40-0.90); GLUCOSE 90 MG/DL (70-104); MAGNESIUM 1.5 MG/DL (1.5-2.4); POTASSIUM 3.4 MMOL/L (3.5-5.1); SODIUM 132 MMOL/L (135-145); TOTAL CARBON DIOXIDE 26.6 MMOL/L (24-32); eGFR > 90 ML/MIN
[2020-02-18 05:44] LABS: BLOOD UREA NITROGEN 4 MG/DL (7-18); BUN/CREATININE RATIO 7.3 (6.6-38.0)
--- NOTE | 2020-02-18 06:18 | NUR ---
Problems reprioritized. Patient report given, questions answered & plan of care reviewed with Padmini CORREA.
[2020-02-18 07:00] VITALS: BP 116/80
--- NOTE | 2020-02-18 07:02 | NUR ---
Patient in room ROBERT 346. I have received report from bernie CORREA and had the opportunity to ask questions and assume patient care.
[2020-02-18] MEDS: K and/or MAG REPLACEMENT MC SCH ×2 (08:00→19:33)
[2020-02-18] MEDS: thiamine 100mg tablet PO SCH (08:07)
[2020-02-18] MEDS: lactobacillus rhamnosus 10,000 MMU CELLS/CAPSULE PO SCH ×2 (08:07→19:32)
[2020-02-18] MEDS: docusate sod 100mg capsule PO SCH ×2 (08:07→19:32)
[2020-02-18] MEDS: citalopram 20mg tablet PO SCH (08:07)
[2020-02-18] MEDS: multivitamins, therapeutics tablet PO SCH (08:07)
[2020-02-18] MEDS: folic acid 1mg tablet PO SCH (08:07)
[2020-02-18] MEDS: nicotine 14mg patch - 24hr TD SCH (08:09)
[2020-02-18] MEDS: heparin, porcine 5000 units/ml vial SQ SCH ×2 (08:09→19:32)
[2020-02-18] MEDS: HYDROcodone/acetaminophen 10/325mg tab PO PRN ×2 (08:10→14:51)
[2020-02-18] MEDS: doxycycline inj 100 MG in normal saline 100ml IV soln 100 ML IV SCH ×2 (09:40→19:33)
[2020-02-18] MEDS: potassium Cl 20 mEq SR tablet PO PRN ×2 (09:43→17:34)
[2020-02-18 11:00] VITALS: BP 133/77
[2020-02-18] MEDS ORDERED: iohexol 300mg/ml 100ml inj. ONE (16:27)
--- NOTE | 2020-02-18 17:48 | NUR ---
patient seen by dr nieto. wound observed to be draining mod amount of purrelent DC. Lab reported that patient has MRSA in wound culture. Dr Nieto aware. Shakey at times, medicated with Ativan per ETOH protocol. Observed to have reddened area with whitish head on right elbow. Dr Nieto paged. Continues with IV ABX, pleasant and cooperative.
--- NOTE | 2020-02-18 18:20 | NUR ---
Problems reprioritized. Patient report given, questions answered & plan of care reviewed with Hanna CORREA.
--- NOTE | 2020-02-18 18:24 | NUR ---
RECEIVED REPORT FROM KRYSTAL CORREA AND ASSUMED PATIENT CARE
[2020-02-18 20:00] VITALS: BP 103/68
[2020-02-19] VITALS: BP 124/75
[2020-02-19] MEDS: LORazepam 2 mg/ml vial IV PRN ×3 (00:08→19:16)
[2020-02-19] MEDS ORDERED: VANCOMYCIN LEVEL IV ONE (04:30)
[2020-02-19] MEDS: vancomycin/NS 1 GM ADD-VANTAGE 250 ML IV SCH (04:56)
[2020-02-19] MEDS: morphine 2 MG/ML inj. syringe IV PRN ×3 (05:00→22:00)
[2020-02-19 05:43] LABS: BASOPHILS % (AUTO) 0.4 % (0-1); EOSINOPHILS # (AUTO) 0.2 X10'3 (0-0.9); EOSINOPHILS % (AUTO) 1.4 % (0-6); HEMATOCRIT 36.2 % (35.0-45.0); HEMOGLOBIN 12.2 g/dl (12.0-16.0); LYMPHOCYTES # (AUTO) 1.6 X10'3 (1.1-4.8); LYMPHOCYTES % (AUTO) 14.8 % (21-51); MEAN CORPUSCULAR HEMOGLOBIN 32.5 PG (27.0-31.0); MEAN CORPUSCULAR HGB CONC 33.7 g/dL (33.0-36.5); MEAN CORPUSCULAR VOLUME 96.3 FL (78-98); MEAN PLATELET VOLUME 8.7 FL (7.4-10.4); MONOCYTES # (AUTO) 0.5 X10'3 (0-0.9); MONOCYTES % (AUTO) 4.3 % (2-12); NEUTROPHILS # (AUTO) 8.8 X10'3 (1.8-7.7); NEUTROPHILS % (AUTO) 79.1 % (42-75); PLATELET COUNT 274 X10'3 (140-440); RED BLOOD COUNT 3.75 X10'6 (4.20-5.60); RED CELL DISTRIBUTION WIDTH 12.8 % (11.5-14.5); WHITE BLOOD COUNT 11.1 X10'3 (4.5-11.0)
[2020-02-19] MEDS: piperacillin/tazo 3.375gm/50ml 50 ML IV SCH ×3 (05:46→22:00)
[2020-02-19 05:49] LABS: ALBUMIN 2.1 G/DL (3.4-5.0); ANION GAP 3 (8-16); BLOOD UREA NITROGEN 4 MG/DL (7-18); BUN/CREATININE RATIO 7.1 (6.6-38.0); CALCIUM 8.2 MG/DL (8.5-10.1); CHLORIDE 102 MMOL/L (99-107); CREATININE 0.56 MG/DL (0.40-0.90); GLUCOSE 90 MG/DL (70-104); MAGNESIUM 1.6 MG/DL (1.5-2.4); POTASSIUM 3.9 MMOL/L (3.5-5.1); SODIUM 134 MMOL/L (135-145); TOTAL CARBON DIOXIDE 28.6 MMOL/L (24-32); VANCOMYCIN,TROUGH 5.5 UG/ML (6.0-14.0); eGFR > 90 ML/MIN
--- NOTE | 2020-02-19 06:25 | NUR ---
Patient in room ROBERT 346. I have received report from Hanna CORREA O/N flojasmine and had the opportunity to ask questions and assume patient care.
[2020-02-19 07:00] VITALS: BP 136/76
[2020-02-19] MEDS: docusate sod 100mg capsule PO SCH ×2 (07:17→19:16)
[2020-02-19] MEDS: thiamine 100mg tablet PO SCH (07:17)
[2020-02-19] MEDS: lactobacillus rhamnosus 10,000 MMU CELLS/CAPSULE PO SCH ×2 (07:17→19:16)
[2020-02-19] MEDS: folic acid 1mg tablet PO SCH (07:17)
[2020-02-19] MEDS: nicotine 14mg patch - 24hr TD SCH (07:17)
[2020-02-19] MEDS: citalopram 20mg tablet PO SCH (07:18)
[2020-02-19] MEDS: multivitamins, therapeutics tablet PO SCH (07:18)
[2020-02-19] MEDS: heparin, porcine 5000 units/ml vial SQ SCH ×2 (07:18→19:17)
[2020-02-19] MEDS: HYDROcodone/acetaminophen 10/325mg tab PO PRN ×2 (07:28→13:01)
--- NOTE | 2020-02-19 08:29 | NUR ---
Patient refused accu check. Patient is eating well.
[2020-02-19] MEDS: K and/or MAG REPLACEMENT MC SCH ×2 (08:35→19:32)
[2020-02-19] MEDS: doxycycline inj 100 MG in normal saline 100ml IV soln 100 ML IV SCH ×2 (09:43→19:15)
[2020-02-19] MEDS: normal saline 1000ml 1,000 ML IV SCH ×2 (10:24→15:12)
--- NOTE | 2020-02-19 12:00 | NUR ---
Patient refused vs
[2020-02-19] MEDS: VANCOmycin 1250MG/NS 250ml Bag 250 ML IV SCH ×2 (12:55→22:00)
--- NOTE | 2020-02-19 14:17 | NUR ---
Patient refused accu check
--- NOTE | 2020-02-19 18:10 | NUR ---
Problems reprioritized. Patient report given, questions answered & plan of care reviewed with Maria Guadalupe CORREA
--- NOTE | 2020-02-19 18:55 | NUR ---
Patient in room ROBERT 346. I have received report from Yisel CORREA and had the opportunity to ask questions and assume patient care.
[2020-02-19 20:00] VITALS: BP 145/68
[2020-02-20 00:13] VITALS: BP 138/89
[2020-02-20] MEDS: LORazepam 2 mg/ml vial IV PRN ×4 (00:57→22:52)
--- NOTE | 2020-02-20 02:19 | NUR ---
Pt refused accucheck.
[2020-02-20] MEDS: morphine 2 MG/ML inj. syringe IV PRN ×4 (04:00→20:21)
[2020-02-20] MEDS: normal saline 1000ml 1,000 ML IV SCH ×3 (04:07→20:15)
[2020-02-20] MEDS: VANCOmycin 1250MG/NS 250ml Bag 250 ML IV SCH ×3 (05:44→20:20)
[2020-02-20 05:50] LABS: BASOPHILS % (AUTO) 0.4 % (0-1); EOSINOPHILS # (AUTO) 0.2 X10'3 (0-0.9); EOSINOPHILS % (AUTO) 2.6 % (0-6); HEMOGLOBIN 12.9 g/dl (12.0-16.0); LYMPHOCYTES # (AUTO) 1.7 X10'3 (1.1-4.8); LYMPHOCYTES % (AUTO) 23.1 % (21-51); MEAN CORPUSCULAR HEMOGLOBIN 32.8 PG (27.0-31.0); MEAN CORPUSCULAR HGB CONC 33.9 g/dL (33.0-36.5); MEAN CORPUSCULAR VOLUME 96.8 FL (78-98); MEAN PLATELET VOLUME 8.5 FL (7.4-10.4); MONOCYTES # (AUTO) 0.4 X10'3 (0-0.9); MONOCYTES % (AUTO) 6.2 % (2-12); NEUTROPHILS # (AUTO) 4.9 X10'3 (1.8-7.7); NEUTROPHILS % (AUTO) 67.7 % (42-75); PLATELET COUNT 321 X10'3 (140-440); RED BLOOD COUNT 3.93 X10'6 (4.20-5.60); RED CELL DISTRIBUTION WIDTH 12.8 % (11.5-14.5); WHITE BLOOD COUNT 7.2 X10'3 (4.5-11.0)
[2020-02-20 06:05] LABS: ALBUMIN 2.5 G/DL (3.4-5.0); ANION GAP 6 (8-16); BLOOD UREA NITROGEN 4 MG/DL (7-18); CHLORIDE 101 MMOL/L (99-107); CREATININE 0.57 MG/DL (0.40-0.90); GLUCOSE 91 MG/DL (70-104); MAGNESIUM 1.5 MG/DL (1.5-2.4); POTASSIUM 3.7 MMOL/L (3.5-5.1); SODIUM 135 MMOL/L (135-145); TOTAL CARBON DIOXIDE 28.5 MMOL/L (24-32); eGFR > 90 ML/MIN
[2020-02-20 06:06] LABS: PARTIAL THROMBOPLASTIN TIME 28 SECONDS (22-32)
--- NOTE | 2020-02-20 06:21 | NUR ---
Problems reprioritized. Patient report given, questions answered & plan of care reviewed with Tony CORREA.
--- NOTE | 2020-02-20 06:26 | NUR ---
Patient in room ROBERT 346. I have received report from SUNNY KLEIN and had the opportunity to ask questions and assume patient care.
[2020-02-20 07:00] VITALS: BP 141/81
[2020-02-20] MEDS: HYDROcodone/acetaminophen 10/325mg tab PO PRN ×2 (07:08→14:17)
[2020-02-20] MEDS: docusate sod 100mg capsule PO SCH ×2 (07:08→20:17)
[2020-02-20] MEDS: thiamine 100mg tablet PO SCH (07:08)
[2020-02-20] MEDS: citalopram 20mg tablet PO SCH (07:08)
[2020-02-20] MEDS: multivitamins, therapeutics tablet PO SCH (07:09)
[2020-02-20] MEDS: nicotine 14mg patch - 24hr TD SCH (07:09)
[2020-02-20] MEDS: folic acid 1mg tablet PO SCH (07:09)
[2020-02-20] MEDS: lactobacillus rhamnosus 10,000 MMU CELLS/CAPSULE PO SCH ×2 (07:09→20:17)
[2020-02-20] MEDS: heparin, porcine 5000 units/ml vial SQ SCH ×2 (07:10→20:18)
[2020-02-20] MEDS: doxycycline inj 100 MG in normal saline 100ml IV soln 100 ML IV SCH (07:19)
[2020-02-20] MEDS: piperacillin/tazo 3.375gm/50ml 50 ML IV SCH ×3 (07:19→22:51)
[2020-02-20] MEDS: K and/or MAG REPLACEMENT MC SCH ×2 (08:00→19:42)
[2020-02-20 12:18] VITALS: BP 134/62
[2020-02-20] MEDS ORDERED: VANCOMYCIN LEVEL IV ONE (12:30)
--- NOTE | 2020-02-20 18:50 | NUR ---
Patient in room ROBERT 345. I have received report from Edin CORREA and had the opportunity to ask questions and assume patient care.
[2020-02-20 20:00] VITALS: BP 157/108
[2020-02-20] MEDS ORDERED: LORazepam 1 MG tablet PO PRN (20:15)
[2020-02-20] MEDS: DOXYCYCLINE 100MG CAPSULE PO SCH (20:17)
--- NOTE | 2020-02-20 20:30 | NUR ---
Pt requested ativan, however med was discontinued. pt is on ETOH protocol, but the protocol fell off. MD was called and asked about continuing ETOH protocol and ativan for pt. pt stated she was "shaky and very anxious" ativan was ordered and pt stated she was feeling "much better"
[2020-02-21] VITALS: BP 141/85
[2020-02-21] MEDS: morphine 2 MG/ML inj. syringe IV PRN ×4 (02:27→20:14)
[2020-02-21] MEDS: LORazepam 2 mg/ml vial IV PRN ×4 (04:55→23:10)
[2020-02-21] MEDS: VANCOmycin 1250MG/NS 250ml Bag 250 ML IV SCH ×3 (04:56→20:13)
[2020-02-21 05:28] LABS: BASOPHILS % (AUTO) 0.7 % (0-1); EOSINOPHILS # (AUTO) 0.3 X10'3 (0-0.9); EOSINOPHILS % (AUTO) 4.7 % (0-6); HEMATOCRIT 36.5 % (35.0-45.0); HEMOGLOBIN 12.1 g/dl (12.0-16.0); LYMPHOCYTES # (AUTO) 1.7 X10'3 (1.1-4.8); LYMPHOCYTES % (AUTO) 30.6 % (21-51); MEAN CORPUSCULAR HEMOGLOBIN 32.5 PG (27.0-31.0); MEAN CORPUSCULAR HGB CONC 33.3 g/dL (33.0-36.5); MEAN CORPUSCULAR VOLUME 97.6 FL (78-98); MEAN PLATELET VOLUME 8.2 FL (7.4-10.4); MONOCYTES # (AUTO) 0.5 X10'3 (0-0.9); MONOCYTES % (AUTO) 8.8 % (2-12); NEUTROPHILS # (AUTO) 3.1 X10'3 (1.8-7.7); NEUTROPHILS % (AUTO) 55.2 % (42-75); PLATELET COUNT 364 X10'3 (140-440); RED BLOOD COUNT 3.74 X10'6 (4.20-5.60); RED CELL DISTRIBUTION WIDTH 13.1 % (11.5-14.5); WHITE BLOOD COUNT 5.7 X10'3 (4.5-11.0)
[2020-02-21 05:30] LABS: ALBUMIN 2.4 G/DL (3.4-5.0); ANION GAP 4 (8-16); BLOOD UREA NITROGEN 4 MG/DL (7-18); BUN/CREATININE RATIO 6.2 (6.6-38.0); CALCIUM 8.9 MG/DL (8.5-10.1); CHLORIDE 102 MMOL/L (99-107); CREATININE 0.65 MG/DL (0.40-0.90); GLUCOSE 93 MG/DL (70-104); MAGNESIUM 1.5 MG/DL (1.5-2.4); POTASSIUM 3.6 MMOL/L (3.5-5.1); SODIUM 138 MMOL/L (135-145); TOTAL CARBON DIOXIDE 31.8 MMOL/L (24-32); eGFR > 90 ML/MIN
--- NOTE | 2020-02-21 06:24 | NUR ---
Problems reprioritized. Patient report given, questions answered & plan of care reviewed with Edin CORREA.
[2020-02-21 07:00] VITALS: BP 154/99
[2020-02-21] MEDS: lactobacillus rhamnosus 10,000 MMU CELLS/CAPSULE PO SCH ×2 (07:15→20:11)
[2020-02-21] MEDS: piperacillin/tazo 3.375gm/50ml 50 ML IV SCH (07:15)
[2020-02-21] MEDS: folic acid 1mg tablet PO SCH (07:15)
[2020-02-21] MEDS: heparin, porcine 5000 units/ml vial SQ SCH ×2 (07:15→20:12)
[2020-02-21] MEDS: multivitamins, therapeutics tablet PO SCH (07:15)
[2020-02-21] MEDS: DOXYCYCLINE 100MG CAPSULE PO SCH ×2 (07:15→20:11)
[2020-02-21] MEDS: thiamine 100mg tablet PO SCH (07:15)
[2020-02-21] MEDS: citalopram 20mg tablet PO SCH (07:15)
[2020-02-21] MEDS: docusate sod 100mg capsule PO SCH ×2 (07:15→20:11)
[2020-02-21] MEDS: nicotine 14mg patch - 24hr TD SCH (07:16)
[2020-02-21] MEDS: K and/or MAG REPLACEMENT MC SCH ×2 (07:19→20:00)
--- NOTE | 2020-02-21 09:39 | NUR ---
Initial: Pt admit with cellulitis to left elbow. Per WO notes the left elbow abscess is full thickness. Pt currently on a regular diet documented with 75-100% PO intake meeting nutrient needs with increased protein to meet the demands of skin integrity/wound healing. LBM 02/20 however only documented with small BMs, receiving routine bowel care. D/w dietary to send prunes and prune juice with next meal to assist with bowel regularity. Will continue to follow and monitor need for further nutrition intervention. Recommendations: 1) Continue regular diet 2) Monitor need for additional protein 3) Continue routine Thiamine, Folic acid, and MVI given EtOH hx 4) Routine bowel care 5) Scaled weights per rx Addendum: 02/21/20 at [address] Amended: Links added.
[2020-02-21 12:12] VITALS: BP 140/81
[2020-02-21] MEDS: normal saline 1000ml 1,000 ML IV SCH ×2 (12:40→22:24)
[2020-02-21] MEDS ORDERED: folic acid inj. 2 MG, thiamine inj. 100 MG, MVI, adult No.4 with vit. K 10 ML in dextro... IV SCH ×4 (16:10)
[2020-02-21] MEDS ORDERED: haloperidol lactate 5mg/ml inj IM PRN (16:10)
[2020-02-21] MEDS ORDERED: LORazepam 2 mg/ml vial IV PRN (16:10)
[2020-02-21] MEDS ORDERED: LORazepam 1 MG tablet PO PRN (16:10)
[2020-02-21] MEDS ORDERED: Chloraseptic (Phenol) Spray 177ml MM PRN (16:10)
[2020-02-21] MEDS ORDERED: thiamine inj. 100 MG in normal saline 100ml IV soln 100 ML IV ONE (16:10)
[2020-02-21] MEDS ORDERED: haloperidol 5mg tablet PO PRN (16:10)
--- NOTE | 2020-02-21 18:10 | NUR ---
Problems reprioritized. Patient report given, questions answered & plan of care reviewed with SUNNY MONDRAGON.
--- NOTE | 2020-02-21 19:54 | NUR ---
Patient in room ROBERT 345. I have received report from Edin CORREA and had the opportunity to ask questions and assume patient care.
[2020-02-21 20:00] VITALS: BP 126/76
[2020-02-22] VITALS: BP 140/90
[2020-02-22] MEDS: normal saline 1000ml 1,000 ML IV SCH (01:34)
[2020-02-22] MEDS: VANCOmycin 1250MG/NS 250ml Bag 250 ML IV SCH (04:18)
[2020-02-22] MEDS: LORazepam 2 mg/ml vial IV PRN (05:29)
--- NOTE | 2020-02-22 06:46 | NUR ---
Patient in room ROBERT 346. I have received report from SUNNY Morales and had the opportunity to ask questions and assume patient care.
--- NOTE | 2020-02-22 06:50 | NUR ---
Problems reprioritized. Patient report given, questions answered & plan of care reviewed with Nathalie CROREA.
[2020-02-22] MEDS: folic acid 1mg tablet PO SCH (07:34)
[2020-02-22] MEDS: citalopram 20mg tablet PO SCH (07:34)
[2020-02-22] MEDS: DOXYCYCLINE 100MG CAPSULE PO SCH (07:34)
[2020-02-22] MEDS: docusate sod 100mg capsule PO SCH (07:34)
[2020-02-22] MEDS: heparin, porcine 5000 units/ml vial SQ SCH (07:35)
[2020-02-22] MEDS: HYDROcodone/acetaminophen 10/325mg tab PO PRN ×2 (07:35→11:45)
[2020-02-22] MEDS: thiamine 100mg tablet PO SCH (07:35)
[2020-02-22] MEDS: lactobacillus rhamnosus 10,000 MMU CELLS/CAPSULE PO SCH (07:35)
[2020-02-22] MEDS: multivitamins, therapeutics tablet PO SCH (07:35)
[2020-02-22 07:37] LABS: BASOPHILS % (AUTO) 0.6 % (0-1); EOSINOPHILS # (AUTO) 0.2 X10'3 (0-0.9); EOSINOPHILS % (AUTO) 2.6 % (0-6); HEMATOCRIT 41.1 % (35.0-45.0); HEMOGLOBIN 13.7 g/dl (12.0-16.0); LYMPHOCYTES # (AUTO) 1.7 X10'3 (1.1-4.8); MEAN CORPUSCULAR HEMOGLOBIN 32.2 PG (27.0-31.0); MEAN CORPUSCULAR HGB CONC 33.4 g/dL (33.0-36.5); MEAN CORPUSCULAR VOLUME 96.3 FL (78-98); MEAN PLATELET VOLUME 7.8 FL (7.4-10.4); MONOCYTES # (AUTO) 0.5 X10'3 (0-0.9); MONOCYTES % (AUTO) 6.6 % (2-12); NEUTROPHILS # (AUTO) 5.3 X10'3 (1.8-7.7); NEUTROPHILS % (AUTO) 68.2 % (42-75); PLATELET COUNT 411 X10'3 (140-440); RED BLOOD COUNT 4.27 X10'6 (4.20-5.60); WHITE BLOOD COUNT 7.8 X10'3 (4.5-11.0)
[2020-02-22] MEDS: nicotine 14mg patch - 24hr TD SCH (07:40)
[2020-02-22 07:58] LABS: ALANINE AMINOTRANSFERASE 26 U/L (12-78); ALBUMIN 2.9 G/DL (3.4-5.0); ALBUMIN/GLOBULIN RATIO 0.6 (1.1-1.5); ALKALINE PHOSPHATASE 111 IU/L (46-116); AMYLASE 28 U/L (25-115); ANION GAP 7 (8-16); ASPARTATE AMINO TRANSFERASE 25 U/L (10-37); BILIRUBIN,TOTAL 0.3 MG/DL (0.1-1.0); BLOOD UREA NITROGEN 5 MG/DL (7-18); BUN/CREATININE RATIO 7.8 (6.6-38.0); CALCIUM 9.2 MG/DL (8.5-10.1); CHLORIDE 102 MMOL/L (99-107); CREATININE 0.64 MG/DL (0.40-0.90); GLUCOSE 114 MG/DL (70-104); LIPASE 76 U/L (73-393); MAGNESIUM 1.6 MG/DL (1.5-2.4); SODIUM 136 MMOL/L (135-145); TOTAL CARBON DIOXIDE 26.6 MMOL/L (24-32); TOTAL PROTEIN 7.5 G/DL (6.4-8.2); eGFR > 90 ML/MIN
[2020-02-22 08:00] LABS: POTASSIUM 4.2 MMOL/L (3.5-5.1)
[2020-02-22] MEDS: K and/or MAG REPLACEMENT MC SCH (08:00)
[2020-02-22 08:25] VITALS: BP 143/99
[2020-02-22] MEDS ORDERED: LACT1CAP26 PO (11:10)
[2020-02-22] MEDS ORDERED: CLIN-97 PO (11:10)
[2020-02-22] MEDS ORDERED: folic acid tablet PO (11:11)
[2020-02-22] MEDS ORDERED: thiamine tablet PO (11:11)
--- NOTE | 2020-02-22 12:56 | NUR ---
Discharged patient, VS stable, no distress noted currently. Patient A&O x4, IVs DC'd with no issues and patient tolerated well. Patient dressed her self and is walking independently. Patient assisted by tech to lobby where her friend is her to pick her up. Patient aware of new orders for scrips to be picked up at her pharmacy on file. All medications reviewed and next doses written out for patient. Patient acknowledges understanding of all discharge instructions. Patient has all belongings that she came with. Dressing change supplies have been supplied to patient on discharge. Patient will follow up with her PCP in one week.
[2020-02-22] MEDS ORDERED: LORazepam 1 MG tablet PO PRN ×3 (20:10→21:10)
[2020-02-22] MEDS ORDERED: LORazepam 2 mg/ml vial IV PRN ×2 (20:10→21:10)
[2020-02-24] MEDS ORDERED: LORazepam 2 mg/ml vial IV PRN ×2 (20:10→21:10)
[2020-02-24] MEDS ORDERED: LORazepam 1 MG tablet PO PRN ×2 (20:10→21:10)
== END 2020-02-22 12:55 | disposition home or self-care (01) | DRG 720 ==
LOC: ER 18:21 → ED HOLD 22:24 → SUR 3N 02-17 07:35
PROVIDERS: ADMIT Internal Medicine; ATTEND Internal Medicine
DX: A41.9 Sepsis, unspecified organism (principal); L03.114 Cellulitis of left upper limb; F12.90 Cannabis use, unspecified, uncomplicated; F32.9 Major depressive disorder, single episode, unspecified; F10.10 Alcohol abuse, uncomplicated; Y90.9 Presence of alcohol in blood, level not specified; F17.200 Nicotine dependence, unspecified, uncomplicated; I48.91 Unspecified atrial fibrillation; L02.414 Cutaneous abscess of left upper limb; Z90.710 Acquired absence of both cervix and uterus
CPT/HCPCS: 36415; 73201; 76937; 80048; 80053; 80202; 81001; 82150; 82948; 83605; 83690; 83735; 84100; 84145; 85025; 85610; 85730; 87040; 87070; 87077; 87081; 87186; 94760; 96361; 96365; 96375; 97116; 97161; 97530; 99285; G0378; J1644; J2060; J2270; J2543; J3370; J3490; J7030; Q9967

== ENCOUNTER → 2020-03-10 | Day surgery (SDC) | payer MEDICAID ==
[~2020-03-10] MED LIST changes: +CITA20TA19 PO; +CLIN-97 PO; -FAMO20TA44 PO; +LACT1CAP26 PO; +LIDOcaine 2% 5ml jelly ONE; -NO HOME MEDS; -OMEP20CA15 PO; -ONDA4TAB12 PO; -ONDA4TAB6 PO; -SUCR1TAB34 PO; +folic acid tablet PO; +thiamine tablet PO
== END | disposition home or self-care (01) ==
LOC: WOUND CARE 09:10 → EDSTATUS 09:20
PROVIDERS: ATTEND Nurse Practitioner Family
DX: L98.492 Non-pressure chronic ulcer of skin of other sites with fat layer exposed (principal); K21.9 Gastro-esophageal reflux disease without esophagitis; M19.90 Unspecified osteoarthritis, unspecified site; I48.91 Unspecified atrial fibrillation; F32.9 Major depressive disorder, single episode, unspecified; F12.90 Cannabis use, unspecified, uncomplicated; F17.200 Nicotine dependence, unspecified, uncomplicated; Z90.710 Acquired absence of both cervix and uterus; Z90.49 Acquired absence of other specified parts of digestive tract
CPT/HCPCS: 97597

== ENCOUNTER 2020-04-22 05:49 | Emergency (ER) | payer MEDICAID ==
[~2020-04-22] VITALS: Ht 167.6 cm; Wt 81.8 kg
[~2020-04-22 05:49] MED LIST changes: -LIDOcaine 2% 5ml jelly ONE
[2020-04-22] MEDS ORDERED: morphine 4 MG/ML inj SYRINge ONE (06:51)
[2020-04-22] MEDS ORDERED: metoclopramide 5 mg/ml inj ONE (06:52)
[2020-04-22] MEDS ORDERED: diphenhydrAMINE 50 mg/ml inj ONE (06:52)
[2020-04-22] MEDS ORDERED: magnesium 1 GM/2 ML inj ONE (06:53)
[2020-04-22] MEDS ORDERED: magnesium 2GM in 50ml NS 50 ML IV ONE (06:56)
[2020-04-22 07:35] LABS: ALANINE AMINOTRANSFERASE 41 U/L (12-78); ALBUMIN/GLOBULIN RATIO 0.9 (1.1-1.5); ALKALINE PHOSPHATASE 136 IU/L (46-116); ANION GAP 7 (8-16); ASPARTATE AMINO TRANSFERASE 34 U/L (10-37); BLOOD UREA NITROGEN 13 MG/DL (7-18); CALCIUM 9.4 MG/DL (8.5-10.1); CHLORIDE 94 MMOL/L (99-107); CREATININE 0.93 MG/DL (0.40-0.90); GLUCOSE 119 MG/DL (70-104); POTASSIUM 3.3 MMOL/L (3.5-5.1); SODIUM 130 MMOL/L (135-145); TOTAL CARBON DIOXIDE 28.6 MMOL/L (24-32); TOTAL PROTEIN 8.4 G/DL (6.4-8.2); eGFR 62 ML/MIN
[2020-04-22 07:54] LABS: ETHANOL < 0.010 GM/DL (0.0-0.010); LIPASE 115 U/L (73-393); MAGNESIUM 1.9 MG/DL (1.5-2.4)
[2020-04-22 09:01] LABS: HEMATOCRIT 49.9 % (35.0-45.0); HEMOGLOBIN 16.7 g/dl (12.0-16.0); MEAN CORPUSCULAR HEMOGLOBIN 30.9 PG (27.0-31.0); MEAN CORPUSCULAR HGB CONC 33.5 g/dL (33.0-36.5); MEAN PLATELET VOLUME 8.8 FL (7.4-10.4); PLATELET COUNT 265 X10'3 (140-440); RED BLOOD COUNT 5.42 X10'6 (4.20-5.60); RED CELL DISTRIBUTION WIDTH 12.7 % (11.5-14.5); WHITE BLOOD COUNT 10.3 X10'3 (4.5-11.0)
[2020-04-22 09:02] LABS: BASOPHILS % (AUTO) 0.3 % (0-1); EOSINOPHILS % (AUTO) 0.3 % (0-6); LYMPHOCYTES # (AUTO) 3.1 X10'3 (1.1-4.8); LYMPHOCYTES % (AUTO) 30.4 % (21-51); MONOCYTES # (AUTO) 0.5 X10'3 (0-0.9); NEUTROPHILS # (AUTO) 6.6 X10'3 (1.8-7.7)
[2020-04-22 09:43] VITALS: BP 125/88
== END 2020-04-22 09:45 | disposition home or self-care (01) ==
LOC: ER 05:50
DX: K29.00 Acute gastritis without bleeding (principal); F10.20 Alcohol dependence, uncomplicated; I48.91 Unspecified atrial fibrillation; F17.200 Nicotine dependence, unspecified, uncomplicated; F12.90 Cannabis use, unspecified, uncomplicated; Z86.19 Personal history of other infectious and parasitic diseases; Z90.710 Acquired absence of both cervix and uterus; Z98.890 Other specified postprocedural states; Z59.0 Homelessness; Z56.0 Unemployment, unspecified; Z60.2 Problems related to living alone; Z79.899 Other long term (current) drug therapy; Y90.0 Blood alcohol level of less than 20 mg/100 ml
CPT/HCPCS: 36415; 71045; 80053; 80320; 83690; 83735; 83880; 85025; 93005; 96365; 96375; 99285; J1200; J2270; J2765; J3475

== ENCOUNTER 2020-06-03 05:02 | Inpatient (IN) | payer MEDICAID ==
[~2020-06-03] VITALS: Ht 167.6 cm; Wt 81.2 kg
[2020-06-03 05:58] LABS: ALANINE AMINOTRANSFERASE 65 U/L (12-78); ALBUMIN 3.9 G/DL (3.4-5.0); ALKALINE PHOSPHATASE 134 IU/L (46-116); ANION GAP 11 (8-16); ASPARTATE AMINO TRANSFERASE 61 U/L (10-37); BILIRUBIN,TOTAL 1.5 MG/DL (0.1-1.0); BLOOD UREA NITROGEN 7 MG/DL (7-18); BUN/CREATININE RATIO 8.4 (6.6-38.0); CALCIUM 8.7 MG/DL (8.5-10.1); CHLORIDE 90 MMOL/L (99-107); CREATININE 0.83 MG/DL (0.40-0.90); GLUCOSE 150 MG/DL (70-104); LIPASE 82 U/L (73-393); POTASSIUM 2.6 MMOL/L (3.5-5.1); SODIUM 127 MMOL/L (135-145); TOTAL CARBON DIOXIDE 26.5 MMOL/L (24-32); eGFR 71 ML/MIN
[2020-06-03 06:00] LABS: HEMOGLOBIN 15.5 g/dl (12.0-16.0)
[2020-06-03 06:01] LABS: BASOPHILS % (AUTO) 0.2 % (0-1); EOSINOPHILS % (AUTO) 0.1 % (0-6); HEMATOCRIT 44.8 % (35.0-45.0); LYMPHOCYTES # (AUTO) 1.8 X10'3 (1.1-4.8); LYMPHOCYTES % (AUTO) 22.1 % (21-51); MEAN CORPUSCULAR HEMOGLOBIN 31.4 PG (27.0-31.0); MEAN CORPUSCULAR HGB CONC 34.5 g/dL (33.0-36.5); MEAN CORPUSCULAR VOLUME 90.9 FL (78-98); MEAN PLATELET VOLUME 9.4 FL (7.4-10.4); MONOCYTES # (AUTO) 0.5 X10'3 (0-0.9); MONOCYTES % (AUTO) 5.9 % (2-12); NEUTROPHILS # (AUTO) 5.9 X10'3 (1.8-7.7); NEUTROPHILS % (AUTO) 71.7 % (42-75); PLATELET COUNT 179 X10'3 (140-440); RED BLOOD COUNT 4.93 X10'6 (4.20-5.60); RED CELL DISTRIBUTION WIDTH 13.6 % (11.5-14.5); WHITE BLOOD COUNT 8.2 X10'3 (4.5-11.0)
[2020-06-03] MEDS ORDERED: pantoprazole 40 MG vial IV ONE (07:05)
[2020-06-03] MEDS ORDERED: normal saline 1000ML IV soln IVB ONE ×2 (07:05)
[2020-06-03] MEDS ORDERED: ondansetron/PF 4mg/2ml inj IV ONE (07:05)
[2020-06-03] MEDS ORDERED: potassium Cl 10 mEq/100mL bag IV SCH (07:05)
--- NOTE | 2020-06-03 07:50 | NUR ---
NOTIFIED CHARGE LARA PT K+IS 2.6 AND WE NEED IV,LARA STATED SHE WILL GO IN PT ROOM.
--- NOTE | 2020-06-03 07:57 | NUR ---
PT IV TRIED TWICE EJ AND RGT UPPER ARM UNSUCCESSFULL ,PT HAS PULLED HER IV OUT FROM LFT EJ ,NOTIFIED DR BOYCE,CHARGE NURSE NOTIFIED ,PICC LINE NURSE PAGED .WILL ADMIN MEDS IV LINE IS AVAILABLE.
--- NOTE | 2020-06-03 08:15 | NUR ---
LARA CHARGE NURSE STATED THAT SHE WILL START LINE BUT DUE TO WORK LOAD SHE DID N'T GET CHANCE.
--- NOTE | 2020-06-03 08:55 | NUR ---
PAGED PICC LINE NURSE 1 HR AGO PER THEM THEY WILL BE HERE IN 45 MIN BUT NO ONE CAME DOWN NOTIFIED ER EXTENSION PROFESSOR KATH TO PAGE THE PICC LINE NURSE.
--- NOTE | 2020-06-03 09:07 | NUR ---
NO LINE AVAIABLE RENOTIFIED CHARGE NURSE,NURSE RAJWINDER CORREA AND LEX AT CHARGE DESK GOING TO SEE PT AND START LINE WILL MEDICATE THE PT AFTER THAT.
--- NOTE | 2020-06-03 09:17 | NUR ---
WALTER PARRA IN ROOM TO START IV LINE
--- NOTE | 2020-06-03 09:22 | NUR ---
UNABLE TO PULL OUT POTTASIUM IV MED CALLED PHARMACY PER PHARTAMACIST THEY WILL FIX IT NOW.
[2020-06-03] MEDS: potassium Cl 10 mEq/100mL bag IV SCH ×2 (09:27→10:30)
[2020-06-03] MEDS ORDERED: HYDROcodone/acetaminophen 10/325mg tab PO PRN (09:45)
[2020-06-03] MEDS ORDERED: potassium Cl 20 mEq SR tablet PO PRN (09:45)
[2020-06-03] MEDS ORDERED: thiamine 100mg/ml 2ml inj. IV ONE (09:45)
[2020-06-03] MEDS ORDERED: haloperidol lactate 5mg/ml inj IM PRN (09:45)
[2020-06-03] MEDS ORDERED: metoclopramide 5 mg/ml inj IV PRN (09:45)
[2020-06-03] MEDS ORDERED: acetaminophen 650mg rectal suppository RC PRN (09:45)
[2020-06-03] MEDS ORDERED: mag hydrox/Alum hydrox/simeth 30ml oral suspension PO PRN (09:45)
[2020-06-03] MEDS ORDERED: magnesium 4gm in 100ml NS 100 ML IV PRN (09:45)
[2020-06-03] MEDS ORDERED: magnesium 2GM in 50ml NS 50 ML IV PRN (09:45)
[2020-06-03] MEDS ORDERED: ondansetron/PF 4mg/2ml inj IV PRN (09:45)
[2020-06-03] MEDS ORDERED: HYDROcodone/acetaminophen 5mg/325mg tablet PO PRN (09:45)
[2020-06-03] MEDS ORDERED: haloperidol 5mg tablet PO PRN (09:45)
[2020-06-03] MEDS ORDERED: potassium CL 10mEq/100ml bag 100 ML IV PRN ×2 (09:45)
[2020-06-03] MEDS ORDERED: magnesium hydroxide 30ml (MOM) UD suspension PO PRN (09:45)
[2020-06-03] MEDS ORDERED: morphine 2 MG/ML inj. syringe IV PRN (09:45)
[2020-06-03] MEDS ORDERED: magnesium Cl slow-release 64mg tablet PO PRN (09:45)
[2020-06-03] MEDS ORDERED: dextrose 50%-water 50ml dispensing syringe IV PRN (09:45)
[2020-06-03] MEDS ORDERED: bisacodyl 10mg suppository rectal RC PRN (09:45)
[2020-06-03] MEDS ORDERED: diphenhydrAMINE 25mg capsule PO PRN (09:45)
[2020-06-03] MEDS ORDERED: acetaminophen 325mg tablet PO PRN ×2 (09:45)
[2020-06-03 10:35] LABS: HEMOGLOBIN A1C 5.6 % (4.5-6.2)
[2020-06-03 10:38] LABS: ETHANOL < 0.010 GM/DL (0.0-0.010)
--- NOTE | 2020-06-03 10:47 | NUR ---
CALLED PHARMACY SPOKE TO KRISSY FOR PT K+ IV INFUSION DRIP .
[2020-06-03] MEDS: potassium Cl 20mEq in D5-NS 1,000 ML IV SCH (10:48)
[2020-06-03] MEDS: potassium Cl 20 mEq SR tablet PO PRN (12:24)
[2020-06-03 12:52] LABS: URINE AMPHETAMINE SCREEN NEGATIVE (Neg); URINE BARBITUATE SCREEN NEGATIVE (Neg); URINE BENZODIAZEPINES SCREEN NEGATIVE (Neg); URINE CANNABINOID SCREEN POSITIVE (Neg); URINE COCAINE SCREEN NEGATIVE (Neg); URINE METHADONE SCREEN NEGATIVE (Neg); URINE OPIATE SCREEN NEGATIVE (Neg); URINE PHENCYCLIDINE SCREEN NEGATIVE (Neg)
[2020-06-03 12:53] LABS: CLARITY,URINE CLEAR (Clear); COLOR,URINE YELLOW (Yellow); GLUCOSE, URINE NEGATIVE (Neg); KETONES,URINE NEGATIVE (Neg); LEUKOCYTE ESTERASE ,URINE NEGATIVE (Neg); NITRITES, URINE NEGATIVE (Neg); OCCULT BLOOD,URINE NEGATIVE (Neg); PROTEIN,URINE NEGATIVE (Neg)
[2020-06-03 12:57] LABS: UA COLLECTION TYPE VOIDED
[2020-06-03] MEDS ORDERED: IPRA4AER IH (13:01)
[2020-06-03] MEDS ORDERED: NALT50TA PO (13:01)
[2020-06-03] MEDS ORDERED: THIA100T66 PO (13:01)
[2020-06-03] MEDS ORDERED: CYCL-1 PO (13:01)
[2020-06-03] MEDS ORDERED: SUCR1TAB PO (13:01)
--- NOTE | 2020-06-03 13:02 | NUR ---
RECEICED REPORT FROM CHARGE NURSE DAVID.
[2020-06-03] MEDS ORDERED: ipratropium/albuterol 3ml nebule IH PRN (13:20)
[2020-06-03 15:00] VITALS: BP 140/94
[2020-06-03] MEDS: LORazepam 2 mg/ml vial IV PRN (15:27)
[2020-06-03] MEDS: morphine 2 MG/ML inj. syringe IV PRN ×2 (15:35→19:43)
[2020-06-03] MEDS: sucralfate 1 gm tablet PO SCH ×2 (17:00→19:43)
[2020-06-03 18:00] VITALS: BP 133/87
--- NOTE | 2020-06-03 18:47 | NUR ---
Problems reprioritized. Patient report given, questions answered & plan of care reviewed with Shelley rachel.
--- NOTE | 2020-06-03 19:34 | NUR ---
Patient in room PCU 3028. I have received report from SUNNY Granados and had the opportunity to ask questions and assume patient care.
[2020-06-03] MEDS: heparin, porcine 5000 units/ml vial SQ SCH (19:44)
[2020-06-03] MEDS: K and/or MAG REPLACEMENT MC SCH (20:00)
[2020-06-03 22:00] VITALS: BP 117/77
--- NOTE | 2020-06-04 01:12 | NUR ---
Pt is agitated, aggressive, and having hallucinations. Paged Dr. Chilel to request an order for restraints. Addendum: 06/04/20 at 0123 by Yohana Campuzano RN Documented on wrong patient. This patient is not agitated.
[2020-06-04 02:00] VITALS: BP 112/81
[2020-06-04] MEDS: potassium Cl 20mEq in D5-NS 1,000 ML IV SCH ×3 (02:32→13:18)
[2020-06-04] MEDS: morphine 2 MG/ML inj. syringe IV PRN ×2 (02:32→20:41)
[2020-06-04 05:07] LABS: BASOPHILS % (AUTO) 0.2 % (0-1); EOSINOPHILS # (AUTO) 0.1 X10'3 (0-0.9); EOSINOPHILS % (AUTO) 0.9 % (0-6); HEMATOCRIT 41.7 % (35.0-45.0); HEMOGLOBIN 13.7 g/dl (12.0-16.0); LYMPHOCYTES # (AUTO) 2.6 X10'3 (1.1-4.8); LYMPHOCYTES % (AUTO) 31.7 % (21-51); MEAN CORPUSCULAR HEMOGLOBIN 30.5 PG (27.0-31.0); MEAN CORPUSCULAR VOLUME 92.5 FL (78-98); MEAN PLATELET VOLUME 9.2 FL (7.4-10.4); MONOCYTES # (AUTO) 0.3 X10'3 (0-0.9); MONOCYTES % (AUTO) 3.4 % (2-12); NEUTROPHILS # (AUTO) 5.2 X10'3 (1.8-7.7); NEUTROPHILS % (AUTO) 63.8 % (42-75); PLATELET COUNT 137 X10'3 (140-440); RED BLOOD COUNT 4.51 X10'6 (4.20-5.60); RED CELL DISTRIBUTION WIDTH 14.7 % (11.5-14.5); WHITE BLOOD COUNT 8.2 X10'3 (4.5-11.0)
[2020-06-04 05:25] LABS: ALANINE AMINOTRANSFERASE 55 U/L (12-78); ALBUMIN 2.9 G/DL (3.4-5.0); ALBUMIN/GLOBULIN RATIO 0.8 (1.1-1.5); ALKALINE PHOSPHATASE 103 IU/L (46-116); ANION GAP 7 (8-16); ASPARTATE AMINO TRANSFERASE 51 U/L (10-37); BILIRUBIN,TOTAL 0.6 MG/DL (0.1-1.0); BLOOD UREA NITROGEN 4 MG/DL (7-18); BUN/CREATININE RATIO 6.3 (6.6-38.0); CALCIUM 7.5 MG/DL (8.5-10.1); CHLORIDE 102 MMOL/L (99-107); CHOL/HDL RATIO 1.5 (0.00-4.99); CHOLESTEROL 116 MG/DL (0-200); CREATININE 0.63 MG/DL (0.40-0.90); GLUCOSE 99 MG/DL (70-104); HDL CHOLESTEROL 77 MG/DL (35-60); LDL CHOLESTEROL 24 MG/DL (50-100); PHOSPHORUS 2.7 MG/DL (2.3-4.5); POTASSIUM 3.2 MMOL/L (3.5-5.1); SODIUM 136 MMOL/L (135-145); TOTAL CARBON DIOXIDE 27.2 MMOL/L (24-32); TOTAL PROTEIN 6.4 G/DL (6.4-8.2); TRIGLYCERIDES 40 MG/DL (20-135); eGFR > 90 ML/MIN
[2020-06-04 06:00] VITALS: BP 134/88
--- NOTE | 2020-06-04 06:28 | NUR ---
Problems reprioritized. Patient report given, questions answered & plan of care reviewed with SUNNY Nash.
--- NOTE | 2020-06-04 06:58 | NUR ---
Patient in room PCU 3028. I have received report from Yohana CORREA and had the opportunity to ask questions and assume patient care.
[2020-06-04] MEDS: thiamine 100mg tablet PO SCH ×2 (07:47→08:01)
[2020-06-04] MEDS: K and/or MAG REPLACEMENT MC SCH ×2 (08:00→20:00)
[2020-06-04] MEDS: naltrexone 50mg tablet PO SCH (08:00)
[2020-06-04] MEDS: potassium Cl 20 mEq SR tablet PO PRN ×3 (08:01→16:22)
[2020-06-04] MEDS: multivitamins, therapeutics tablet PO SCH (08:01)
[2020-06-04] MEDS: folic acid 1mg tablet PO SCH (08:02)
[2020-06-04] MEDS: sucralfate 1 gm tablet PO SCH ×4 (08:02→20:41)
[2020-06-04] MEDS: citalopram 20mg tablet PO SCH (08:02)
[2020-06-04] MEDS: heparin, porcine 5000 units/ml vial SQ SCH ×2 (08:03→20:41)
[2020-06-04] MEDS: LORazepam 2 mg/ml vial IV PRN ×4 (08:08→23:03)
[2020-06-04 11:00] VITALS: BP 121/78
[2020-06-04] MEDS ORDERED: nicotine 21mg patch - 24 hr TD ONE (12:30)
[2020-06-04 15:29] VITALS: BP 126/81
[2020-06-04 17:28] LABS: MAGNESIUM 1.2 MG/DL (1.5-2.4)
[2020-06-04 17:31] LABS: POTASSIUM 4.3 MMOL/L (3.5-5.1)
--- NOTE | 2020-06-04 18:20 | NUR ---
Problems reprioritized. Patient report given, questions answered & plan of care reviewed with Afua CORREA.
[2020-06-04 18:30] VITALS: BP 131/90
--- NOTE | 2020-06-04 18:30 | NUR ---
Patient in room U 3028. I have received report from SUNNY Nash and had the opportunity to ask questions and assume patient care. Pt c/o some pain req pain medication when due. Sitter in room pt calm at this time. Addendum: 06/04/20 at 1941 by Cedric Chaney RN Amended: Links added.
[2020-06-05 02:00] VITALS: BP_SYST 121; BP_SYST 136; BP_DIAS 68; BP_DIAS 84
[2020-06-05] MEDS: potassium Cl 20mEq in D5-NS 1,000 ML IV SCH ×2 (02:56→11:45)
[2020-06-05] MEDS: morphine 2 MG/ML inj. syringe IV PRN (02:58)
[2020-06-05 05:53] LABS: BASOPHILS % (AUTO) 0.1 % (0-1); EOSINOPHILS # (AUTO) 0.1 X10'3 (0-0.9); HEMATOCRIT 43.5 % (35.0-45.0); HEMOGLOBIN 14.5 g/dl (12.0-16.0); LYMPHOCYTES # (AUTO) 2.3 X10'3 (1.1-4.8); LYMPHOCYTES % (AUTO) 32.7 % (21-51); MEAN CORPUSCULAR HEMOGLOBIN 30.8 PG (27.0-31.0); MEAN CORPUSCULAR HGB CONC 33.4 g/dL (33.0-36.5); MEAN CORPUSCULAR VOLUME 92.2 FL (78-98); MEAN PLATELET VOLUME 9.5 FL (7.4-10.4); MONOCYTES # (AUTO) 0.3 X10'3 (0-0.9); MONOCYTES % (AUTO) 4.4 % (2-12); NEUTROPHILS # (AUTO) 4.4 X10'3 (1.8-7.7); NEUTROPHILS % (AUTO) 60.8 % (42-75); PLATELET COUNT 138 X10'3 (140-440); RED BLOOD COUNT 4.72 X10'6 (4.20-5.60); RED CELL DISTRIBUTION WIDTH 14.3 % (11.5-14.5); WHITE BLOOD COUNT 7.2 X10'3 (4.5-11.0)
[2020-06-05 06:00] VITALS: BP 130/84
[2020-06-05 06:06] LABS: ALANINE AMINOTRANSFERASE 66 U/L (12-78); ALBUMIN 3.1 G/DL (3.4-5.0); ALBUMIN/GLOBULIN RATIO 0.8 (1.1-1.5); ALKALINE PHOSPHATASE 119 IU/L (46-116); ANION GAP 5 (8-16); ASPARTATE AMINO TRANSFERASE 61 U/L (10-37); BILIRUBIN,TOTAL 0.5 MG/DL (0.1-1.0); BLOOD UREA NITROGEN 8 MG/DL (7-18); BUN/CREATININE RATIO 13.1 (6.6-38.0); CALCIUM 8.2 MG/DL (8.5-10.1); CHLORIDE 102 MMOL/L (99-107); CREATININE 0.61 MG/DL (0.40-0.90); GLUCOSE 115 MG/DL (70-104); MAGNESIUM 1.9 MG/DL (1.5-2.4); PHOSPHORUS 2.9 MG/DL (2.3-4.5); SODIUM 135 MMOL/L (135-145); TOTAL PROTEIN 6.9 G/DL (6.4-8.2); eGFR > 90 ML/MIN
--- NOTE | 2020-06-05 06:51 | NUR ---
Problems reprioritized. Patient report given, questions answered & plan of care reviewed with SUNNY Carter. Addendum: 06/05/20 at 0652 by Cedric Chaney RN Amended: Links added.
--- NOTE | 2020-06-05 07:13 | NUR ---
Patient in room PCU 3028. I have received report from SUNNY Caal and had the opportunity to ask questions and assume patient care.
[2020-06-05] MEDS: sucralfate 1 gm tablet PO SCH ×2 (07:29→11:26)
[2020-06-05] MEDS: naltrexone 50mg tablet PO SCH (07:30)
[2020-06-05] MEDS: citalopram 20mg tablet PO SCH (07:30)
[2020-06-05] MEDS: folic acid 1mg tablet PO SCH (07:30)
[2020-06-05] MEDS: multivitamins, therapeutics tablet PO SCH (07:31)
[2020-06-05] MEDS: thiamine 100mg tablet PO SCH ×2 (07:31→08:00)
[2020-06-05] MEDS: heparin, porcine 5000 units/ml vial SQ SCH (07:34)
[2020-06-05] MEDS: LORazepam 2 mg/ml vial IV PRN (07:50)
[2020-06-05] MEDS ORDERED: nicotine 21mg patch - 24 hr TD SCH (08:00)
[2020-06-05] MEDS: K and/or MAG REPLACEMENT MC SCH (08:00)
[2020-06-05] MEDS ORDERED: LORazepam 1 MG tablet PO PRN (09:45)
[2020-06-05] MEDS ORDERED: LORazepam 2 mg/ml vial IV PRN (09:45)
[2020-06-05] MEDS ORDERED: FOLI0.4T2 PO (10:54)
[2020-06-05] MEDS ORDERED: MULT-25 PO (10:54)
[2020-06-05] MEDS ORDERED: folic acid tablet PO (10:54)
[2020-06-05] MEDS ORDERED: MAGN400C PO (10:54)
[2020-06-05 11:00] VITALS: BP 128/86
--- NOTE | 2020-06-05 13:28 | NUR ---
Pt D/C's home in stable condition. IV and Tele box removed. Discharge and medication instruction given to pt. Pt was escorted to main lobby on W/C. left the hospital via private vehicle accompanied by family member. BS 112.
[2020-06-07] MEDS ORDERED: LORazepam 1 MG tablet PO PRN (09:45)
[2020-06-07] MEDS ORDERED: LORazepam 2 mg/ml vial IV PRN (09:45)
== END 2020-06-05 14:23 | disposition home or self-care (01) | DRG 426 ==
LOC: ER 05:03 → ED HOLD 09:42 → PCU 3S 13:10
PROVIDERS: ADMIT Family Medicine; ATTEND Family Medicine
DX: E87.1 Hypo-osmolality and hyponatremia (principal); E86.0 Dehydration; E86.1 Hypovolemia; E87.6 Hypokalemia; F12.10 Cannabis abuse, uncomplicated; F17.210 Nicotine dependence, cigarettes, uncomplicated; F32.9 Major depressive disorder, single episode, unspecified; I48.91 Unspecified atrial fibrillation; K29.20 Alcoholic gastritis without bleeding; Z66 Do not resuscitate; E83.42 Hypomagnesemia; Z90.711 Acquired absence of uterus with remaining cervical stump; Z95.1 Presence of aortocoronary bypass graft
CPT/HCPCS: 36415; 70450; 76937; 80053; 80061; 80305; 80320; 81003; 82140; 82948; 83036; 83690; 83735; 84100; 84132; 85025; 85610; 93005; 94760; 96374; 96375; 97161; 97530; 99285; C9113; G0378; J1644; J2060; J2270; J2405; J3411; J3475; J3480; J7030

== ENCOUNTER 2020-07-17 11:14 | Emergency (ER) | payer MEDICAID ==
[~2020-07-17] VITALS: Ht 167.6 cm; Wt 83.0 kg
[~2020-07-17 11:14] MED LIST changes: -CLIN-97 PO; +CYCL-1 PO; +IPRA4AER IH; -LACT1CAP26 PO; +MAGN400C PO; +MULT-25 PO; +NALT50TA PO; +SUCR1TAB PO; +THIA100T66 PO; -thiamine tablet PO
[2020-07-17] MEDS ORDERED: normal saline 1000ML IV soln IVB ONE (11:25)
[2020-07-17] MEDS ORDERED: folic acid 1mg/0.2ml inj IV ONE (11:25)
[2020-07-17] MEDS ORDERED: ondansetron/PF 4mg/2ml inj IV ONE (11:25)
[2020-07-17] MEDS ORDERED: thiamine 100mg/ml 2ml inj. IV ONE (11:25)
[2020-07-17 11:58] LABS: EOSINOPHILS % (AUTO) 0.3 % (0-6); LYMPHOCYTES # (AUTO) 4.4 X10'3 (1.1-4.8); MONOCYTES # (AUTO) 0.6 X10'3 (0-0.9); WHITE BLOOD COUNT 8.3 X10'3 (4.5-11.0)
[2020-07-17 12:00] LABS: BASOPHILS % (AUTO) 0.4 % (0-1); HEMATOCRIT 49.1 % (35.0-45.0); HEMOGLOBIN 16.7 g/dl (12.0-16.0); LYMPHOCYTES % (AUTO) 52.9 % (21-51); MEAN CORPUSCULAR HEMOGLOBIN 31.6 PG (27.0-31.0); MEAN CORPUSCULAR VOLUME 92.7 FL (78-98); MEAN PLATELET VOLUME 8.1 FL (7.4-10.4); MONOCYTES % (AUTO) 7.6 % (2-12); NEUTROPHILS # (AUTO) 3.2 X10'3 (1.8-7.7); NEUTROPHILS % (AUTO) 38.8 % (42-75); PLATELET COUNT 277 X10'3 (140-440); RED CELL DISTRIBUTION WIDTH 15.4 % (11.5-14.5)
[2020-07-17 12:09] LABS: ALANINE AMINOTRANSFERASE 51 U/L (12-78); ALKALINE PHOSPHATASE 132 IU/L (46-116); ANION GAP 11 (8-16); ASPARTATE AMINO TRANSFERASE 58 U/L (10-37); BILIRUBIN,TOTAL 0.7 MG/DL (0.1-1.0); BLOOD UREA NITROGEN 12 MG/DL (7-18); BUN/CREATININE RATIO 17.1 (6.6-38.0); CALCIUM 8.4 MG/DL (8.5-10.1); CHLORIDE 104 MMOL/L (99-107); GLUCOSE 116 MG/DL (70-104); POTASSIUM 3.1 MMOL/L (3.5-5.1); SODIUM 140 MMOL/L (135-145); TOTAL CARBON DIOXIDE 24.6 MMOL/L (24-32); TOTAL PROTEIN 8.1 G/DL (6.4-8.2); eGFR 86 ML/MIN
[2020-07-17 12:11] LABS: ETHANOL 0.426 GM/DL (0.0-0.010)
--- NOTE | 2020-07-17 12:15 | NUR ---
at this time, the patient cannot provide a urine sample. will check after first liter of fluid
[2020-07-17] MEDS ORDERED: potassium Cl 20 mEq SR tablet PO STA (12:41)
[2020-07-17] MEDS ORDERED: potassium Cl 10 mEq/100mL bag IV ONE (12:45)
[2020-07-17 13:04] LABS: CLARITY,URINE CLEAR (Clear); COLOR,URINE YELLOW (Yellow); GLUCOSE, URINE NEGATIVE (Neg); KETONES,URINE NEGATIVE (Neg); LEUKOCYTE ESTERASE ,URINE NEGATIVE (Neg); NITRITES, URINE NEGATIVE (Neg); OCCULT BLOOD,URINE NEGATIVE (Neg); PROTEIN,URINE NEGATIVE (Neg); UROBILINOGEN,URINE 0.2 E.U/dL (0.2-1.0)
[2020-07-17 13:06] LABS: UA COLLECTION TYPE CLN CATCH MIDSTREAM
[2020-07-17 13:18] LABS: URINE AMPHETAMINE SCREEN NEGATIVE (Neg); URINE BARBITUATE SCREEN NEGATIVE (Neg); URINE BENZODIAZEPINES SCREEN NEGATIVE (Neg); URINE CANNABINOID SCREEN POSITIVE (Neg); URINE COCAINE SCREEN NEGATIVE (Neg); URINE METHADONE SCREEN NEGATIVE (Neg); URINE OPIATE SCREEN NEGATIVE (Neg); URINE PHENCYCLIDINE SCREEN NEGATIVE (Neg)
[2020-07-17 13:40] LABS: METAMYLEOCYTES% (MANUAL) 0 % (0-0); TOTAL CELLS COUNTED 100
[2020-07-17 13:41] LABS: PLATELET ESTIMATE NORMAL; SMUDGE CELLS FEW
[2020-07-17 15:05] VITALS: BP 149/85
== END 2020-07-17 15:07 | disposition home or self-care (01) ==
LOC: ER 11:15
DX: F10.129 Alcohol abuse with intoxication, unspecified (principal); I48.91 Unspecified atrial fibrillation; F12.90 Cannabis use, unspecified, uncomplicated; Z86.19 Personal history of other infectious and parasitic diseases; Z87.01 Personal history of pneumonia (recurrent); Z90.710 Acquired absence of both cervix and uterus; Z98.890 Other specified postprocedural states; Z72.89 Other problems related to lifestyle; Z60.2 Problems related to living alone; Z59.0 Homelessness; Z56.0 Unemployment, unspecified; Z79.899 Other long term (current) drug therapy; Y90.0 Blood alcohol level of less than 20 mg/100 ml
CPT/HCPCS: 36415; 76937; 80053; 80305; 80320; 81003; 85007; 85025; 96361; 96374; 96375; 99284; J2405; J3411; J3480; J3490; J7030

== ENCOUNTER 2020-08-27 08:37 | Emergency (ER) | payer MEDICAID ==
[~2020-08-27] VITALS: Ht 167.6 cm; Wt 86.4 kg
[2020-08-27 08:47] VITALS: BP 144/86
[2020-08-27] MEDS ORDERED: mupirocin 2% ointment 22GM TP STA (10:35)
[2020-08-27] MEDS ORDERED: sulfamethoxazole/trimethoprim DS (800/160mg) tablet PO ONE (10:35)
[2020-08-27] MEDS ORDERED: SULF1TAB49 PO (10:37)
[2020-08-27] MEDS ORDERED: CEPH500C5 PO (10:37)
== END 2020-08-27 10:57 | disposition home or self-care (01) ==
LOC: ER 08:38
DX: L02.512 Cutaneous abscess of left hand (principal); L02.511 Cutaneous abscess of right hand; I48.91 Unspecified atrial fibrillation; G30.9 Alzheimer's disease, unspecified; F02.80 Dementia in other diseases classified elsewhere, unspecified severity, without behavioral disturbance, psychotic disturbance, mood disturbance, and anxiety; F12.90 Cannabis use, unspecified, uncomplicated; J45.909 Unspecified asthma, uncomplicated; E78.00 Pure hypercholesterolemia, unspecified; Z86.14 Personal history of Methicillin resistant Staphylococcus aureus infection; Z87.01 Personal history of pneumonia (recurrent); Z86.19 Personal history of other infectious and parasitic diseases; Z90.710 Acquired absence of both cervix and uterus; Z72.89 Other problems related to lifestyle; Z56.0 Unemployment, unspecified; Z59.0 Homelessness; Z79.2 Long term (current) use of antibiotics; Z79.899 Other long term (current) drug therapy
CPT/HCPCS: 99283

== ENCOUNTER 2020-09-09 14:19 | Emergency (ER) | payer MEDICAID ==
[~2020-09-09] VITALS: Ht 167.6 cm; Wt 83.0 kg
[~2020-09-09 14:19] MED LIST changes: +CEPH500C5 PO
[2020-09-09 14:26] VITALS: BP 125/86
[2020-09-09] MEDS ORDERED: ketorolac tromethamine 15mg/ml inj. IM ONE (16:35)
[2020-09-09] MEDS ORDERED: ondansetron 4mg rapidly disintigrating tab PO ONE (16:35)
[2020-09-09] MEDS ORDERED: HYDROcodone/acetaminophen 10/325mg tab PO ONE (16:35)
[2020-09-09] MEDS ORDERED: ONDA4TAB6 PO (16:50)
[2020-09-09] MEDS ORDERED: HYDR-3965 PO (16:50)
[2020-09-12] MEDS ORDERED: HYDR-3972 PO (10:27)
== END 2020-09-09 17:13 | disposition home or self-care (01) ==
LOC: ER 14:20
DX: S42.032A Displaced fracture of lateral end of left clavicle, initial encounter for closed fracture (principal); I48.91 Unspecified atrial fibrillation; F12.90 Cannabis use, unspecified, uncomplicated; Z87.01 Personal history of pneumonia (recurrent); Z86.19 Personal history of other infectious and parasitic diseases; Z86.14 Personal history of Methicillin resistant Staphylococcus aureus infection; Z90.710 Acquired absence of both cervix and uterus; Z56.0 Unemployment, unspecified; Z59.0 Homelessness; Z72.89 Other problems related to lifestyle; Z79.2 Long term (current) use of antibiotics; Z79.899 Other long term (current) drug therapy; W18.49XA Other slipping, tripping and stumbling without falling, initial encounter; Z91.81 History of falling; Y93.89 Activity, other specified; Y92.89 Other specified places as the place of occurrence of the external cause; Y99.8 Other external cause status
CPT/HCPCS: 73030; 96372; 99284; J1885

== ENCOUNTER 2020-10-02 15:43 | Inpatient (IN) | payer MEDICAID ==
[~2020-10-02] VITALS: Ht 167.6 cm; Wt 92.2 kg
[~2020-10-02 15:43] MED LIST changes: +CEPH-585 PO; -CEPH500C5 PO; +ONDA4TAB6 PO
[2020-10-02] MEDS ORDERED: normal saline 1000ml 1,000 ML IV ONE ×2 (15:50→16:00)
--- NOTE | 2020-10-02 16:05 | NUR ---
Contacted [place] poison control. Reccomend minimum 6 hours of cardiac monitoring and seizure precautions. Hypotension and tachycardia to be expected. Fluid bolus for hypotension, and levophed to be added if hypotension persists. EKG now as well as repeat in 4 hours; give 1-2 amps bicarb for QRS 120ms or longer. Obtain tylenol, ASA, and EtOH levels. Give benzo's for any seizure activity or agitation.
[2020-10-02 16:16] LABS: BASOPHILS % (AUTO) 0.2 % (0-1); EOSINOPHILS % (AUTO) 0.1 % (0-6); HEMATOCRIT 35.9 % (35.0-45.0); HEMOGLOBIN 11.8 g/dl (12.0-16.0); LYMPHOCYTES # (AUTO) 1.9 X10'3 (1.1-4.8); LYMPHOCYTES % (AUTO) 20.1 % (21-51); MEAN CORPUSCULAR HEMOGLOBIN 31.7 PG (27.0-31.0); MEAN CORPUSCULAR VOLUME 96.2 FL (78-98); MEAN PLATELET VOLUME 9.7 FL (7.4-10.4); MONOCYTES # (AUTO) 0.5 X10'3 (0-0.9); MONOCYTES % (AUTO) 5.1 % (2-12); NEUTROPHILS % (AUTO) 74.5 % (42-75); PLATELET COUNT 236 X10'3 (140-440); RED BLOOD COUNT 3.73 X10'6 (4.20-5.60); RED CELL DISTRIBUTION WIDTH 14.4 % (11.5-14.5); WHITE BLOOD COUNT 9.4 X10'3 (4.5-11.0)
--- NOTE | 2020-10-02 16:24 | NUR ---
back from ct
[2020-10-02 16:26] LABS: ALANINE AMINOTRANSFERASE 61 U/L (12-78); ALBUMIN 3.2 G/DL (3.4-5.0); ALBUMIN/GLOBULIN RATIO 0.8 (1.1-1.5); ALKALINE PHOSPHATASE 92 IU/L (46-116); ANION GAP 13 (8-16); ASPARTATE AMINO TRANSFERASE 53 U/L (10-37); BILIRUBIN,TOTAL 0.4 MG/DL (0.1-1.0); BLOOD UREA NITROGEN 22 MG/DL (7-18); BUN/CREATININE RATIO 13.7 (6.6-38.0); CALCIUM 9.2 MG/DL (8.5-10.1); CHLORIDE 93 MMOL/L (99-107); CREATININE 1.61 MG/DL (0.40-0.90); GLUCOSE 159 MG/DL (70-104); POTASSIUM 3.5 MMOL/L (3.5-5.1); SODIUM 131 MMOL/L (135-145); TOTAL CARBON DIOXIDE 24.7 MMOL/L (24-32); TOTAL PROTEIN 7.1 G/DL (6.4-8.2); eGFR 33 ML/MIN
[2020-10-02 16:36] LABS: ETHANOL < 0.010 GM/DL (0.0-0.010)
[2020-10-02 16:38] LABS: ACETAMINOPHEN < 2.0 UG/ML (10-30)
--- NOTE | 2020-10-02 17:02 | NUR ---
pt iv removed once back from CT, unable to start line x2. spoke wioth dr solis. ok to hold line for now, hold type and screen and continue to monitor. pt sleeping, vss, no distress noted.
[2020-10-02 17:48] LABS: CLARITY,URINE SLIGHTLY CLOUDY (Clear); COLOR,URINE YELLOW (Yellow); GLUCOSE, URINE NEGATIVE (Neg); KETONES,URINE 15 mg/dl (Neg); LEUKOCYTE ESTERASE ,URINE NEGATIVE (Neg); NITRITES, URINE NEGATIVE (Neg); OCCULT BLOOD,URINE NEGATIVE (Neg); PROTEIN,URINE TRACE mg/dl (Neg)
[2020-10-02 17:50] LABS: UA COLLECTION TYPE STRAIGHT CATH
[2020-10-02 17:55] LABS: COARSE GRANULAR CAST 0-3 /LPF (NEGATIVE); HYALINE CASTS >30 /LPF (NEGATIVE); SQUAMOUS EPITHELIAL CELL,UR MODERATE /LPF (FEW)
[2020-10-02 17:56] LABS: MUCUS STRANDS MODERATE /LPF (Neg); RENAL CELLS, URINE FEW /HPF
[2020-10-02 17:57] LABS: TRANSITIONAL EPI CELLS,URINE MANY /HPF
[2020-10-02 17:58] LABS: BACTERIA,URINE NONE SEEN /HPF (Neg); RBC,URINE 0-2 /HPF (0-2); WBC,URINE 0-4 /HPF (0-4)
[2020-10-02 18:01] LABS: URINE AMPHETAMINE SCREEN POSITIVE (Neg); URINE BARBITUATE SCREEN NEGATIVE (Neg); URINE BENZODIAZEPINES SCREEN NEGATIVE (Neg); URINE CANNABINOID SCREEN POSITIVE (Neg); URINE COCAINE SCREEN NEGATIVE (Neg); URINE METHADONE SCREEN NEGATIVE (Neg); URINE OPIATE SCREEN NEGATIVE (Neg); URINE PHENCYCLIDINE SCREEN NEGATIVE (Neg)
[2020-10-02] MEDS ORDERED: TETanus/Pertussis (Acell)/Diphther VAC/PF (Tdap-Adult) 0.5ml syringe IMVAC ONE (19:05)
[2020-10-02] MEDS ORDERED: LORazepam 2 mg/ml vial IV ONE (19:05)
[2020-10-02] MEDS ORDERED: bacitracin 15gm ointment TP ONE (19:05)
[2020-10-02] MEDS ORDERED: magnesium 2GM in 50ml NS 50 ML IV PRN (19:45)
[2020-10-02] MEDS ORDERED: ondansetron/PF 4mg/2ml inj IV PRN (19:45)
[2020-10-02] MEDS ORDERED: potassium Cl 40MEQ/1/2NS 520ml 520 ML IV PRN ×2 (19:45)
[2020-10-02] MEDS ORDERED: magnesium Cl slow-release 64mg tablet PO PRN (19:45)
[2020-10-02] MEDS ORDERED: mag hydrox/Alum hydrox/simeth 30ml oral suspension PO PRN (19:45)
[2020-10-02] MEDS ORDERED: acetaminophen 325mg tablet PO PRN (19:45)
[2020-10-02] MEDS ORDERED: potassium Cl 20 mEq SR tablet PO PRN ×2 (19:45)
[2020-10-02] MEDS ORDERED: magnesium 4gm in 100ml NS 100 ML IV PRN (19:45)
--- NOTE | 2020-10-02 19:52 | NUR ---
NEW IV PLACED FOR ADMISSION. PT CURRENTLY HAVING LEFT WRIST WOUNDS CLEANED OUT BY TECH WITHOUT ISSUE. PT COOPERATIVE AND AGREEING TO STAYING OVERNIGHT. PT AOX4. MEDS SEND TO PHARMACY FOR LOCK UP
[2020-10-02] MEDS: K and/or MAG REPLACEMENT MC SCH (20:00)
--- NOTE | 2020-10-02 20:37 | NUR ---
WHILE PT WAS RECEIVING WOUND CLEANING, PT STATED TO THE TECH "SO DO I NEED TO GO DEEPER NEXT TIME?" WHILE REFERRING TO HER WRIST WOUNDS.
[2020-10-02] MEDS ORDERED: ondansetron/PF 4mg/2ml inj IV ONE (21:25)
[2020-10-02] MEDS ORDERED: proCHLORperazine 10 MG/2 ml inj IV ONE (21:25)
[2020-10-02] MEDS: docusate sod 100mg capsule PO SCH (21:50)
--- NOTE | 2020-10-02 21:51 | NUR ---
PT REPORTS DIARRHEA, HELD THE ORDERED COLACE
[2020-10-02] MEDS: ipratropium/albuterol 3ml nebule NEB SCH (22:09)
[2020-10-02] MEDS: sucralfate 1 gm tablet PO SCH (22:23)
--- NOTE | 2020-10-02 23:03 | NUR ---
SPOKE WITH POISON CONTROL SHOAIB AND GAVE UPDATE ON PT STATUS. NO NEW RECOMMENDATIONS. REPEATING EKG CURRENTLY
--- NOTE | 2020-10-03 00:56 | NUR ---
ASSUMED CARE QRS 0.08. PATIENT HAD 100 ML WATER VOMITED UP. PATIENT REQUESTED ATIVAN
--- NOTE | 2020-10-03 00:59 | NUR ---
SPOKE TO DR TAYLOR REGARDING PATIENT DEMANDING REQUEST TO CALL MD FOR VOMITING NOW THAT SHE IS AWAKE REQUESTING ATIVAN. NO NEW ORDERS.
--- NOTE | 2020-10-03 01:08 | NUR ---
SPOKE TO ZEHRA AGREES NO OVER DUE MEDICATIONS ON eMAR ATIVAN ORDER DC'D AND VERIFIED
--- NOTE | 2020-10-03 02:00 | NUR ---
rom awoke asking for water advised to sip water drank whole cup then vomited up, demanded more water advised no advised since you became nauseated and vomited the water up. Patient verbalized "we do not know what the fuck we were doing and closed her eyes"
[2020-10-03] MEDS: ipratropium/albuterol 3ml nebule NEB SCH ×4 (02:58→20:03)
--- NOTE | 2020-10-03 03:00 | NUR ---
awoke wanted water reports we are killing her not allowing her to drink all the water she wants to drink. ice chips were given, no nausea patient swalllowed ice chip whole and coughed requested more. Patient fell back to sleep.
--- NOTE | 2020-10-03 04:17 | NUR ---
awoke coughing, closed eyws went back to sleep.
--- NOTE | 2020-10-03 05:27 | NUR ---
supine, eupneic respirations, eyes closed no signs of distress
[2020-10-03] MEDS: K and/or MAG REPLACEMENT MC SCH ×2 (08:00→20:00)
[2020-10-03] MEDS: thiamine 100mg tablet PO SCH (08:29)
[2020-10-03] MEDS: citalopram 20mg tablet PO SCH (08:29)
[2020-10-03] MEDS: sucralfate 1 gm tablet PO SCH ×4 (08:29→21:36)
[2020-10-03] MEDS: docusate sod 100mg capsule PO SCH ×2 (08:29→21:36)
[2020-10-03 09:14] LABS: BASOPHILS % (AUTO) 0.2 % (0-1); EOSINOPHILS % (AUTO) 0 % (0-6); HEMOGLOBIN 11.6 g/dl (12.0-16.0); LYMPHOCYTES % (AUTO) 25.3 % (21-51); MEAN CORPUSCULAR HEMOGLOBIN 31.4 PG (27.0-31.0); MEAN CORPUSCULAR HGB CONC 33.2 g/dL (33.0-36.5); MEAN CORPUSCULAR VOLUME 94.6 FL (78-98); MEAN PLATELET VOLUME 9.5 FL (7.4-10.4); MONOCYTES % (AUTO) 8.5 % (2-12); NEUTROPHILS # (AUTO) 7.7 X10'3 (1.8-7.7); PLATELET COUNT 265 X10'3 (140-440); WHITE BLOOD COUNT 11.7 X10'3 (4.5-11.0)
[2020-10-03 09:21] LABS: ALBUMIN 3.1 G/DL (3.4-5.0); ANION GAP 13 (8-16); BLOOD UREA NITROGEN 29 MG/DL (7-18); BUN/CREATININE RATIO 15.4 (6.6-38.0); CALCIUM 9.1 MG/DL (8.5-10.1); CHLORIDE 95 MMOL/L (99-107); CREATININE 1.88 MG/DL (0.40-0.90); GLUCOSE 101 MG/DL (70-104); POTASSIUM 3.5 MMOL/L (3.5-5.1); SODIUM 134 MMOL/L (135-145); TOTAL CARBON DIOXIDE 25.9 MMOL/L (24-32); eGFR 28 ML/MIN
--- NOTE | 2020-10-03 10:02 | NUR ---
LINDA FROM POISON CONTROL CALLED FOR PATIENT CONDITION REPORT. POISON CONTROL WILL STAY ON THE CASE BUT SUGGESTED REPEAT EKG AT PRESENT TIME. DR. FORREST PAGED AND INFORMED OF THIS IMFORMATION. PAGER ID: [phone] MESSAGE: ER BED #[id number] ANNALEE: POISON CONTROL WOULD LIKE REPEAT EKG DONE TO COMPARE WITH PREVIOUS STUDY AND SUGGESTS A NA BICARB BOLUS IF THE QRS IS GREATER THAN 120. REPEAT EKG WILL BE DONE IN THE ER. PLEASE ADVISE FOR QUESTIONS. ARMAND [phone]
--- NOTE | 2020-10-03 11:07 | NUR ---
REPORT GIVEN TO PCU, TO SUNNY VAZQUEZ, CHARGE NURSE.
--- NOTE | 2020-10-03 11:10 | NUR ---
Patient in room PCU 3010. I have received report from SUNNY Cardenas and had the opportunity to ask questions and awaiting pt's arrival from ED.
[2020-10-03 12:16] VITALS: BP 110/71
--- NOTE | 2020-10-03 12:16 | NUR ---
Pt arrived from ED, ambulated from [facility] to hospital bed with one person contact assist. Pt alert and oriented to room, BLL, SRx2, CL within reach, non skid socks on. 2 RN skin check complete, MRSA swab collected. First set of vitals complete. Sitter at bedside.
--- NOTE | 2020-10-03 13:44 | NUR ---
Spoke with Chariyt from poison control, informed her pt's EKG QRS was 84, gave current vital signs, pt is doing well and in no current distress. Chariyt said everything looks good and they'll call back if they have any further questions.
[2020-10-03 18:00] VITALS: BP 91/49
--- NOTE | 2020-10-03 18:24 | NUR ---
Problems reprioritized. Patient report given, questions answered & plan of care reviewed with SUNNY Blanc. Pt sleeping comfortably at change of shift, all pt needs met at this time.
[2020-10-03 22:00] VITALS: BP 115/77
--- NOTE | 2020-10-03 23:43 | NUR ---
Patient in room PCU 3010. I have received report from Linnette CORREA and had the opportunity to ask questions and assume patient care.
[2020-10-04 02:00] VITALS: BP 98/63
[2020-10-04] MEDS: ipratropium/albuterol 3ml nebule NEB SCH ×4 (02:27→20:36)
--- NOTE | 2020-10-04 05:58 | NUR ---
Patient in room [facility] 3010. I have received report from Linnette CORREA and had the opportunity to ask questions and assume patient care. Addendum: 10/04/20 at 0611 by Guanaco Mcmillan RN Problems reprioritized. Patient report given, questions answered & plan of care reviewed with Linnette CORREA.
--- NOTE | 2020-10-04 06:13 | NUR ---
Patient in room PCU 3010. I have received report from SUNNY Blanc and had the opportunity to ask questions and assume patient care.
[2020-10-04 07:00] VITALS: BP 110/66
[2020-10-04] MEDS: citalopram 20mg tablet PO SCH (07:41)
[2020-10-04] MEDS: thiamine 100mg tablet PO SCH (07:41)
[2020-10-04] MEDS: sucralfate 1 gm tablet PO SCH ×4 (07:41→20:22)
[2020-10-04] MEDS: docusate sod 100mg capsule PO SCH ×2 (07:41→19:53)
[2020-10-04] MEDS: K and/or MAG REPLACEMENT MC SCH ×2 (08:00→19:53)
--- NOTE | 2020-10-04 09:17 | NUR ---
Paged EKG Re Gabriela Corona [phone] Did you do an EKG today? Please call [phone] Thank you :)
--- NOTE | 2020-10-04 10:30 | NUR ---
Talked with Abi at poison control, read the patient's EKG results to her, read pt's current vitals and electrolytes. Abi informed me they want magnesium >2, Potassium >4, and Calcium >9. Poison control will call up to follow up on pt's status.
[2020-10-04 11:00] VITALS: BP 108/68
[2020-10-04 15:00] VITALS: BP 111/75
[2020-10-04 18:00] VITALS: BP 112/68
--- NOTE | 2020-10-04 18:20 | NUR ---
Problems reprioritized. Patient report given, questions answered & plan of care reviewed with SUNNY Blanc. Pt sleeping comfortably at change of shift, no signs of distress. All pt needs met at this time.
[2020-10-04 18:28] LABS: ALBUMIN 2.8 G/DL (3.4-5.0); ANION GAP 8 (8-16); BLOOD UREA NITROGEN 21 MG/DL (7-18); BUN/CREATININE RATIO 24.1 (6.6-38.0); CHLORIDE 100 MMOL/L (99-107); CREATININE 0.87 MG/DL (0.40-0.90); GLUCOSE 129 MG/DL (70-104); MAGNESIUM 2.2 MG/DL (1.5-2.4); SODIUM 137 MMOL/L (135-145); TOTAL CARBON DIOXIDE 28.7 MMOL/L (24-32); eGFR 67 ML/MIN
[2020-10-04 18:31] LABS: POTASSIUM 2.6 MMOL/L (3.5-5.1)
[2020-10-04 19:02] LABS: BASOPHILS % (AUTO) 0.5 % (0-1); EOSINOPHILS # (AUTO) 0.1 X10'3 (0-0.9); EOSINOPHILS % (AUTO) 0.7 % (0-6); HEMATOCRIT 29.3 % (35.0-45.0); HEMOGLOBIN 10.1 g/dl (12.0-16.0); LYMPHOCYTES # (AUTO) 4.2 X10'3 (1.1-4.8); LYMPHOCYTES % (AUTO) 46.8 % (21-51); MEAN CORPUSCULAR HEMOGLOBIN 32.1 PG (27.0-31.0); MEAN CORPUSCULAR HGB CONC 34.4 g/dL (33.0-36.5); MEAN CORPUSCULAR VOLUME 93.5 FL (78-98); MONOCYTES # (AUTO) 0.8 X10'3 (0-0.9); MONOCYTES % (AUTO) 8.6 % (2-12); NEUTROPHILS # (AUTO) 3.9 X10'3 (1.8-7.7); NEUTROPHILS % (AUTO) 43.4 % (42-75); PLATELET COUNT 247 X10'3 (140-440); RED BLOOD COUNT 3.13 X10'6 (4.20-5.60); RED CELL DISTRIBUTION WIDTH 13.9 % (11.5-14.5)
--- NOTE | 2020-10-04 20:06 | NUR ---
Problems reprioritized. Patient report given, questions answered & plan of care reviewed with evelyn.
--- NOTE | 2020-10-04 20:06 | NUR ---
Patient in room PCU 3010. I have received report from yani and had the opportunity to ask questions and assume patient care.
--- NOTE | 2020-10-04 20:10 | NUR ---
Patient in room PCU 3010. I have received report from and had the opportunity to ask questions and assume patient care Guanaco CORREA .
[2020-10-04 22:00] VITALS: BP 118/74
[2020-10-05 02:00] VITALS: BP 99/70
--- NOTE | 2020-10-05 06:30 | NUR ---
Problems reprioritized. Patient report given, questions answered & plan of care reviewed with Annika CORREA.
[2020-10-05 07:00] VITALS: BP 95/58
[2020-10-05] MEDS: sucralfate 1 gm tablet PO SCH ×4 (07:00→20:29)
[2020-10-05 07:14] LABS: BASOPHILS % (AUTO) 0.5 % (0-1); EOSINOPHILS # (AUTO) 0.1 X10'3 (0-0.9); EOSINOPHILS % (AUTO) 1.1 % (0-6); HEMATOCRIT 31.6 % (35.0-45.0); HEMOGLOBIN 10.7 g/dl (12.0-16.0); LYMPHOCYTES # (AUTO) 2.9 X10'3 (1.1-4.8); LYMPHOCYTES % (AUTO) 33.2 % (21-51); MEAN CORPUSCULAR HEMOGLOBIN 32.3 PG (27.0-31.0); MEAN CORPUSCULAR HGB CONC 33.8 g/dL (33.0-36.5); MEAN CORPUSCULAR VOLUME 95.8 FL (78-98); MEAN PLATELET VOLUME 9.4 FL (7.4-10.4); MONOCYTES # (AUTO) 0.7 X10'3 (0-0.9); MONOCYTES % (AUTO) 7.9 % (2-12); NEUTROPHILS % (AUTO) 57.3 % (42-75); PLATELET COUNT 283 X10'3 (140-440); RED CELL DISTRIBUTION WIDTH 14.1 % (11.5-14.5); WHITE BLOOD COUNT 8.7 X10'3 (4.5-11.0)
[2020-10-05 07:20] LABS: ANION GAP 8 (8-16); BLOOD UREA NITROGEN 19 MG/DL (7-18); BUN/CREATININE RATIO 24.1 (6.6-38.0); CALCIUM 9.2 MG/DL (8.5-10.1); CHLORIDE 102 MMOL/L (99-107); CREATININE 0.79 MG/DL (0.40-0.90); GLUCOSE 112 MG/DL (70-104); MAGNESIUM 2.1 MG/DL (1.5-2.4); POTASSIUM 3.7 MMOL/L (3.5-5.1); SODIUM 139 MMOL/L (135-145); TOTAL CARBON DIOXIDE 29.5 MMOL/L (24-32); eGFR 75 ML/MIN
[2020-10-05] MEDS: K and/or MAG REPLACEMENT MC SCH ×2 (08:00→20:00)
[2020-10-05] MEDS: thiamine 100mg tablet PO SCH (08:34)
[2020-10-05] MEDS: docusate sod 100mg capsule PO SCH ×2 (08:34→20:29)
[2020-10-05] MEDS: citalopram 20mg tablet PO SCH (08:34)
[2020-10-05] MEDS: ipratropium/albuterol 3ml nebule NEB SCH ×3 (09:00→20:26)
[2020-10-05 11:00] VITALS: BP 103/68
[2020-10-05] MEDS: normal saline 1000ml 1,000 ML IV SCH ×2 (11:00→20:31)
--- NOTE | 2020-10-05 13:36 | NUR ---
Page Sent promotional table spacer PAGER ID: [phone] MESSAGE: [id number] Cj. Pt needs order for the sitter that is already in there and she is requesting a nicotine patch. Annika [phone]
[2020-10-05 15:00] VITALS: BP 113/72
--- NOTE | 2020-10-05 15:20 | NUR ---
Dr. Medina gave me verbal orders at bedside for a 500 mL fluid bolus and to start NS@100. Pt received 500ml bolus and NS is running at 100
[2020-10-05 18:00] VITALS: BP 106/65
--- NOTE | 2020-10-05 18:10 | NUR ---
Problems reprioritized. Patient report given, questions answered & plan of care reviewed with Guanaco RN.
--- NOTE | 2020-10-05 18:46 | NUR ---
Patient in room PCU 3010. I have received report from Annika and had the opportunity to ask questions and assume patient care.
[2020-10-05] MEDS ORDERED: nicotine 21mg patch - 24 hr TD SCH (20:25)
[2020-10-05 22:00] VITALS: BP 111/64
[2020-10-06] VITALS (9 sets, daily range): BP systolic 86–114; BP diastolic 50–76
[2020-10-06] MEDS: ipratropium/albuterol 3ml nebule NEB SCH ×4 (02:42→20:35)
--- NOTE | 2020-10-06 06:23 | NUR ---
Problems reprioritized. Patient report given, questions answered & plan of care reviewed with stepan.
--- NOTE | 2020-10-06 06:35 | NUR ---
Patient in room PCU 3010. I have received report from Guanaco CORREA and had the opportunity to ask questions and assume patient care.
[2020-10-06 06:48] LABS: BASOPHILS # (AUTO) 0.1 X10'3 (0-0.2); BASOPHILS % (AUTO) 0.7 % (0-1); EOSINOPHILS # (AUTO) 0.2 X10'3 (0-0.9); EOSINOPHILS % (AUTO) 1.9 % (0-6); HEMATOCRIT 28.1 % (35.0-45.0); HEMOGLOBIN 9.5 g/dl (12.0-16.0); LYMPHOCYTES # (AUTO) 2.6 X10'3 (1.1-4.8); LYMPHOCYTES % (AUTO) 31.7 % (21-51); MEAN CORPUSCULAR HEMOGLOBIN 32.7 PG (27.0-31.0); MEAN CORPUSCULAR HGB CONC 33.8 g/dL (33.0-36.5); MEAN CORPUSCULAR VOLUME 96.8 FL (78-98); MONOCYTES # (AUTO) 0.5 X10'3 (0-0.9); MONOCYTES % (AUTO) 6.3 % (2-12); NEUTROPHILS # (AUTO) 4.8 X10'3 (1.8-7.7); NEUTROPHILS % (AUTO) 59.4 % (42-75); PLATELET COUNT 285 X10'3 (140-440); RED CELL DISTRIBUTION WIDTH 14.4 % (11.5-14.5); WHITE BLOOD COUNT 8.1 X10'3 (4.5-11.0)
[2020-10-06 07:08] LABS: ALBUMIN 2.6 G/DL (3.4-5.0); ANION GAP 7 (8-16); BLOOD UREA NITROGEN 16 MG/DL (7-18); BUN/CREATININE RATIO 22.9 (6.6-38.0); CALCIUM 8.7 MG/DL (8.5-10.1); CHLORIDE 106 MMOL/L (99-107); GLUCOSE 102 MG/DL (70-104); MAGNESIUM 1.8 MG/DL (1.5-2.4); POTASSIUM 3.6 MMOL/L (3.5-5.1); SODIUM 140 MMOL/L (135-145); TOTAL CARBON DIOXIDE 26.6 MMOL/L (24-32); eGFR 86 ML/MIN
[2020-10-06] MEDS: docusate sod 100mg capsule PO SCH ×2 (07:12→21:10)
[2020-10-06] MEDS: thiamine 100mg tablet PO SCH (07:12)
[2020-10-06] MEDS: citalopram 20mg tablet PO SCH (07:12)
[2020-10-06] MEDS: sucralfate 1 gm tablet PO SCH ×4 (07:12→21:10)
[2020-10-06] MEDS: normal saline 1000ml 1,000 ML IV SCH ×3 (07:12→21:10)
[2020-10-06] MEDS: K and/or MAG REPLACEMENT MC SCH ×2 (07:13→20:00)
[2020-10-06] MEDS ORDERED: nicotine 21mg patch - 24 hr TD SCH (08:00)
--- NOTE | 2020-10-06 15:14 | NUR ---
PAGER ID: [phone] MESSAGE: [id number]- Recheck orthostatics, 107/72 hr 86, 112/69 hr 89, 108/65 hr 102. Is her tele able to be DC'd, she only had a 24hr order. thanks Justin Ext [phone]
--- NOTE | 2020-10-06 16:33 | NUR ---
Patient resting comfortably in bed, no complaints of pain, TELE removed per Dr Medina. Sitcarroll at bedside, bed locked in lowest position, call light within reach, patient instructed to call for assistance, verbalized understanding,.
--- NOTE | 2020-10-06 19:15 | NUR ---
Patient in room PCU 3010. I have received report from Justin and had the opportunity to ask questions and assume patient care.
[2020-10-07 02:00] VITALS: BP 125/84
[2020-10-07] MEDS: ipratropium/albuterol 3ml nebule NEB SCH ×3 (02:20→15:00)
[2020-10-07] MEDS: normal saline 1000ml 1,000 ML IV SCH ×2 (04:53→10:41)
[2020-10-07 06:00] VITALS: BP 135/75
--- NOTE | 2020-10-07 06:08 | NUR ---
Problems reprioritized. Patient report given, questions answered & plan of care reviewed with stepan.
[2020-10-07 07:12] LABS: BASOPHILS % (AUTO) 0.6 % (0-1); EOSINOPHILS # (AUTO) 0.1 X10'3 (0-0.9); EOSINOPHILS % (AUTO) 2.1 % (0-6); HEMATOCRIT 26.5 % (35.0-45.0); LYMPHOCYTES # (AUTO) 1.9 X10'3 (1.1-4.8); MEAN CORPUSCULAR HEMOGLOBIN 32.7 PG (27.0-31.0); MEAN CORPUSCULAR HGB CONC 33.9 g/dL (33.0-36.5); MEAN CORPUSCULAR VOLUME 96.6 FL (78-98); MEAN PLATELET VOLUME 8.8 FL (7.4-10.4); MONOCYTES # (AUTO) 0.5 X10'3 (0-0.9); MONOCYTES % (AUTO) 8.6 % (2-12); NEUTROPHILS # (AUTO) 3.6 X10'3 (1.8-7.7); NEUTROPHILS % (AUTO) 57.7 % (42-75); PLATELET COUNT 302 X10'3 (140-440); RED BLOOD COUNT 2.75 X10'6 (4.20-5.60); RED CELL DISTRIBUTION WIDTH 14.6 % (11.5-14.5); WHITE BLOOD COUNT 6.2 X10'3 (4.5-11.0)
[2020-10-07] MEDS: docusate sod 100mg capsule PO SCH (07:33)
[2020-10-07] MEDS: citalopram 20mg tablet PO SCH (07:33)
[2020-10-07] MEDS: sucralfate 1 gm tablet PO SCH ×2 (07:33→11:41)
[2020-10-07] MEDS: thiamine 100mg tablet PO SCH (07:33)
[2020-10-07 07:36] LABS: ALBUMIN 2.5 G/DL (3.4-5.0); ANION GAP 6 (8-16); BLOOD UREA NITROGEN 11 MG/DL (7-18); BUN/CREATININE RATIO 17.5 (6.6-38.0); CALCIUM 8.2 MG/DL (8.5-10.1); CHLORIDE 106 MMOL/L (99-107); CREATININE 0.63 MG/DL (0.40-0.90); GLUCOSE 100 MG/DL (70-104); MAGNESIUM 1.4 MG/DL (1.5-2.4); POTASSIUM 3.5 MMOL/L (3.5-5.1); SODIUM 140 MMOL/L (135-145); eGFR > 90 ML/MIN
[2020-10-07] MEDS ORDERED: nicotine 21mg patch - 24 hr TD SCH (08:00)
--- NOTE | 2020-10-07 09:43 | NUR ---
Initial: Pt presented with SI/DO and was admitted for monitoring and CHALINO (resolved). Lacerations to bilat wrists. PO 75-100% on a regular diet meeting nutritional needs. Pt has a history of alcohol abuse, currently receiving routine Thiamine. Per H&P multivitamin with folic acid on home med list, d/w clinical pharmacist. Last BM 10/01. Constipation being treated with Colace BID may benefit from additional bowel care. Recommend prune juice and prunes with next meal, d/w dietary. Will continue to monitor. Recommend: 1) Continue regular diet 2) Continue routine thiamine, add MVI and folic acid for EtOH hx with MD approval, d/w clinical pharmacist 3) Continue routine bowel care 4) Scaled wt per Rx Addendum: 10/07/20 at [address] Amended: Links added. Addendum: 10/07/20 at [address] I have reviewed and agree with note by Museum Exhibit Designer. Shakira Sue, JOI
[2020-10-07] MEDS ORDERED: folic acid 1mg tablet PO SCH (09:50)
[2020-10-07] MEDS ORDERED: multivitamins, therapeutics tablet PO SCH (09:55)
--- NOTE | 2020-10-07 10:47 | NUR ---
Patient resting in bed comfortably, sitter at bedside, bed locked in lowest position, call light within reach, patient instructed to call for assistance, verbalized understanding.
[2020-10-07 11:00] VITALS: BP 107/60
--- NOTE | 2020-10-07 14:01 | NUR ---
PAGER ID: [phone] MESSAGE: DAVID ON [email or web address], [facility] EVALUATED [phone] AND SAID NO NEED FOR [id number] HOLD, CAN I DC THAT ORDER AND REMOVE SITTER?
--- NOTE | 2020-10-07 15:46 | NUR ---
Patient discharge home per orders. IV removed. Patient has been cleared from mental health and medically. Discharge instructions provided to patient, verbalized understanding. Meds from pharmacy was returned to patient.
== END 2020-10-07 15:57 | disposition home or self-care (01) | DRG 812 ==
LOC: ER 15:44 → ED HOLD 19:45 → PCU 3S 10-03 12:18
PROVIDERS: ADMIT Internal Medicine; ATTEND Internal Medicine
PROC: 0HQEXZZ Repair Left Lower Arm Skin, External Approach (ICD-10-PCS; principal; 2020-10-02)
PROC: 3E0234Z Introduction of Serum, Toxoid and Vaccine into Muscle, Percutaneous Approach (ICD-10-PCS; 2020-10-02)
DX: T48.1X2A Poisoning by skeletal muscle relaxants [neuromuscular blocking agents], intentional self-harm, initial encounter (principal); B18.2 Chronic viral hepatitis C; I48.91 Unspecified atrial fibrillation; N17.9 Acute kidney failure, unspecified; B19.20 Unspecified viral hepatitis C without hepatic coma; F10.20 Alcohol dependence, uncomplicated; E87.1 Hypo-osmolality and hyponatremia; Z60.2 Problems related to living alone; I95.1 Orthostatic hypotension; D64.9 Anemia, unspecified; F12.90 Cannabis use, unspecified, uncomplicated; S61.512A Laceration without foreign body of left wrist, initial encounter; X78.1XXA Intentional self-harm by knife, initial encounter; Y93.89 Activity, other specified; Y92.89 Other specified places as the place of occurrence of the external cause; Y99.8 Other external cause status; Z90.710 Acquired absence of both cervix and uterus; Z59.0 Homelessness; Z23 Encounter for immunization; Z79.899 Other long term (current) drug therapy
CPT/HCPCS: 12013; 36415; 70450; 71045; 72125; 76937; 80048; 80053; 80305; 80320; 80329; 81001; 83735; 84443; 85025; 87081; 90471; 90715; 93005; 94640; 94760; 97116; 97161; 97530; 99285; G0378; J0780; J2405; J7030

== ENCOUNTER 2020-10-14 16:17 | Emergency (ER) | payer MEDICAID ==
[~2020-10-14] VITALS: Ht 167.6 cm; Wt 81.8 kg
[~2020-10-14 16:17] MED LIST changes: -CEPH-585 PO; -MAGN400C PO; -folic acid tablet PO
[2020-10-14] MEDS ORDERED: piperacillin/tazo 3.375gm/50ml 50 ML IV ONE (16:30)
[2020-10-14] MEDS ORDERED: sulfamethoxazole/trimethoprim DS (800/160mg) tablet PO ONE (16:30)
--- NOTE | 2020-10-14 17:15 | NUR ---
wound cleaned, sutured removed, abx ointment applied & redressed. pt educated about ongoing care
[2020-10-14 17:27] LABS: BASOPHILS # (AUTO) 0.1 X10'3 (0-0.2); BASOPHILS % (AUTO) 0.6 % (0-1); EOSINOPHILS # (AUTO) 0.3 X10'3 (0-0.9); EOSINOPHILS % (AUTO) 3.9 % (0-6); HEMATOCRIT 27.9 % (35.0-45.0); HEMOGLOBIN 9.2 g/dl (12.0-16.0); LYMPHOCYTES # (AUTO) 3.4 X10'3 (1.1-4.8); LYMPHOCYTES % (AUTO) 38.8 % (21-51); MEAN CORPUSCULAR HEMOGLOBIN 31.5 PG (27.0-31.0); MEAN CORPUSCULAR HGB CONC 32.9 g/dL (33.0-36.5); MEAN CORPUSCULAR VOLUME 95.8 FL (78-98); MONOCYTES # (AUTO) 0.5 X10'3 (0-0.9); MONOCYTES % (AUTO) 5.9 % (2-12); NEUTROPHILS # (AUTO) 4.5 X10'3 (1.8-7.7); NEUTROPHILS % (AUTO) 50.8 % (42-75); PLATELET COUNT 414 X10'3 (140-440); RED BLOOD COUNT 2.92 X10'6 (4.20-5.60); RED CELL DISTRIBUTION WIDTH 14.4 % (11.5-14.5); WHITE BLOOD COUNT 8.9 X10'3 (4.5-11.0)
[2020-10-14 17:39] LABS: ALANINE AMINOTRANSFERASE 50 U/L (12-78); ALBUMIN/GLOBULIN RATIO 0.8 (1.1-1.5); ALKALINE PHOSPHATASE 189 IU/L (46-116); ANION GAP 11 (8-16); ASPARTATE AMINO TRANSFERASE 28 U/L (10-37); BILIRUBIN,TOTAL 0.1 MG/DL (0.1-1.0); BLOOD UREA NITROGEN 11 MG/DL (7-18); BUN/CREATININE RATIO 14.7 (6.6-38.0); CALCIUM 9.2 MG/DL (8.5-10.1); CHLORIDE 108 MMOL/L (99-107); CREATININE 0.75 MG/DL (0.40-0.90); ETHANOL 0.162 GM/DL (0.0-0.010); GLUCOSE 123 MG/DL (70-104); POTASSIUM 3.7 MMOL/L (3.5-5.1); SODIUM 143 MMOL/L (135-145); TOTAL CARBON DIOXIDE 23.6 MMOL/L (24-32); TOTAL PROTEIN 6.9 G/DL (6.4-8.2); eGFR 80 ML/MIN
[2020-10-14] MEDS ORDERED: bacitracin 15gm ointment TP ONE (17:50)
[2020-10-14 18:09] VITALS: BP 108/70
[2020-10-14] MEDS ORDERED: SULF1TAB49 PO (18:21)
[2020-10-14 18:46] LABS: URINE AMPHETAMINE SCREEN POSITIVE (Neg); URINE BARBITUATE SCREEN NEGATIVE (Neg); URINE BENZODIAZEPINES SCREEN NEGATIVE (Neg); URINE CANNABINOID SCREEN POSITIVE (Neg); URINE COCAINE SCREEN NEGATIVE (Neg); URINE METHADONE SCREEN NEGATIVE (Neg); URINE OPIATE SCREEN NEGATIVE (Neg); URINE PHENCYCLIDINE SCREEN NEGATIVE (Neg)
== END 2020-10-14 18:34 | disposition home or self-care (01) ==
LOC: ER 16:18
DX: S61.512A Laceration without foreign body of left wrist, initial encounter (principal); T30.0 Burn of unspecified body region, unspecified degree; I48.91 Unspecified atrial fibrillation; F12.90 Cannabis use, unspecified, uncomplicated; Z86.19 Personal history of other infectious and parasitic diseases; Z86.14 Personal history of Methicillin resistant Staphylococcus aureus infection; Z87.01 Personal history of pneumonia (recurrent); Z90.710 Acquired absence of both cervix and uterus; Z98.890 Other specified postprocedural states; Z72.89 Other problems related to lifestyle; Z60.2 Problems related to living alone; Z59.0 Homelessness; Z56.0 Unemployment, unspecified; Z79.899 Other long term (current) drug therapy; Z79.2 Long term (current) use of antibiotics; X08.8XXA Exposure to other specified smoke, fire and flames, initial encounter; Y93.89 Activity, other specified; Y92.89 Other specified places as the place of occurrence of the external cause; Y99.8 Other external cause status
CPT/HCPCS: 36415; 80053; 80305; 80320; 84145; 85025; 96365; 99284; J2543

== ENCOUNTER 2020-10-17 14:36 | Emergency (ER) | payer MEDICAID ==
[~2020-10-17] VITALS: Ht 167.6 cm; Wt 81.8 kg
[~2020-10-17 14:36] MED LIST changes: +SULF1TAB49 PO
[2020-10-17 14:38] VITALS: BP 138/89
[2020-10-17] MEDS ORDERED: MUPI22OI30 TOP (15:08)
[2020-10-17] MEDS ORDERED: CEPH-585 PO (15:08)
[2020-10-17] MEDS ORDERED: mupirocin 2% ointment 22GM TP STA (15:08)
== END 2020-10-17 15:27 | disposition home or self-care (01) ==
LOC: ER 14:36
DX: S61.502A Unspecified open wound of left wrist, initial encounter (principal); I48.91 Unspecified atrial fibrillation; Z86.14 Personal history of Methicillin resistant Staphylococcus aureus infection; Z90.710 Acquired absence of both cervix and uterus; Z98.890 Other specified postprocedural states; F12.90 Cannabis use, unspecified, uncomplicated; Z72.89 Other problems related to lifestyle; Z56.0 Unemployment, unspecified; Z59.0 Homelessness; Z60.2 Problems related to living alone; Z79.899 Other long term (current) drug therapy; X58.XXXA Exposure to other specified factors, initial encounter; Y93.89 Activity, other specified; Y92.89 Other specified places as the place of occurrence of the external cause; Y99.8 Other external cause status
CPT/HCPCS: 99283

== ENCOUNTER 2020-10-24 11:04 | Emergency (ER) | payer MEDICAID ==
[~2020-10-24 11:04] MED LIST changes: +CEPH-585 PO; +MUPI22OI30 TOP
== END 2020-10-24 14:09 | disposition left against medical advice (07) ==
LOC: ER 11:05
DX: R42 Dizziness and giddiness (principal); Z53.21 Procedure and treatment not carried out due to patient leaving prior to being seen by health care provider